=== PATIENT | male | born 1990 ===

== ENCOUNTER 2018-07-17 22:20 | Inpatient (IN) | payer MEDICAID ==
[2018-07-17] MEDS ORDERED: Dexamethasone 4 mg/1 ml IVP STA (22:54)
[2018-07-17] MEDS ORDERED: Multivitamin (MVI) 10 ML, Thiamine 100 MG, Folic Acid 1 MG in Sodium Chloride 0.9% 1,00... IV ONE ×2 (22:55→23:15)
[2018-07-17 23:03] LABS: BASO # 0.1 K/uL (0.0-0.2); BASO % 0.6 % (0.0-2.0); HEMOGLOBIN 14.5 g/dL (12.0-18.0); LYMPH # 0.8 K/uL (1.0-4.3); LYMPH % 9.4 % (20.0-40.0); MEAN CELL VOLUME 94.2 fL (80.0-94.0); MEAN CORPUSCULAR HEMOGLOBIN 32.9 pg (27.0-31.0); MEAN CORPUSCULAR HGB CONC 34.9 g/dL (33.0-37.0); MONO # 0.8 K/uL (0.0-0.8); MONO % 9.2 % (0.0-10.0); NEUT # 7.1 K/uL (1.8-7.0); NEUT % 80.8 % (50.0-75.0); PLATELET COUNT 177 K/uL (130-400); RBC 4.39 Mil/uL (4.40-5.90); WHITE BLOOD COUNT 8.9 K/uL (4.8-10.8)
[2018-07-17 23:21] LABS: ALB/GLOB RATIO 1.4 (1.0-2.1); ALBUMIN 4.3 g/dL (3.5-5.0); ALT/SGPT 490 U/L (21-72); BLOOD UREA NITROGEN 17 mg/dL (9-20); CALCIUM 8.7 mg/dl (8.6-10.4); GFR NON-AFRICAN AMERICAN > 60
[2018-07-17 23:36] LABS: BANDS 1 % (0-2); LYMPHOCYTE 4 % (20-40); MONOCYTE 10 % (0-10); NEUTROPHIL 77 % (50-75); PLATELET ESTIMATE NORMAL (NORMAL); REACTIVE LYMPHOCYTES 8 % (0-0); TOTAL CELLS COUNTED 100
[2018-07-17 23:40] LABS: AST/SGOT 1653 U/L (17-59)
[2018-07-18] MEDS ORDERED: Iodixanol 320 MG/ML 100 ML BOTTLE IV ONE (00:28)
--- NOTE | 2018-07-18 00:49 | C.PDOC ---
History Of Present Illness 28 year old male presents to the ER with a complaint of increasing buttock pain and swelling, right greater than left, and swelling to posterior bilateral legs after he slipped and fell 3 days ago on his buttock. Patient states he was unable to walk today due to weakness in the bilateral legs. Patient is an alcoholic, drinks 6-7 beers a day. Denies chest pain, SOB, or headache. <Servando Velazco Last Filed: 07/18/18 01:15> History Per: Patient History/Exam Limitations: no limitations Onset/Duration Of Symptoms: Days Current Symptoms Are (Timing): Still Present Recent travel outside of the [place]: No <Servando Velazco - Last Filed: 07/18/18 01:15> <Grzegorz Wiggins - Last Filed: 07/18/18 05:44> Time Seen by Provider: 07/17/18 22:42 Chief Complaint (Nursing): Lower Extremity Problem/Injury Past Medical History Reviewed: Historical Data, Nursing Documentation, Vital Signs Vital Signs: Last Vital Signs Temp 99.1 F 07/17/18 22:31 Pulse 93 H 07/18/18 00:08 Resp 18 07/18/18 00:08 BP 138/84 07/18/18 00:08 Pulse Ox 98 07/18/18 00:08 Family History: States: Unknown Family Hx - Social History Hx Alcohol Use: Yes Hx Substance Use: No - Immunization History Hx Tetanus Toxoid Vaccination: No Hx Influenza Vaccination: No Hx Pneumococcal Vaccination: No <Servando Velazco Last Filed: 07/18/18 01:15> Vital Signs: Last Vital Signs Temp 99.1 F 07/17/18 22:31 Pulse 85 07/18/18 03:25 Resp 16 07/18/18 03:25 BP 126/91 H 07/18/18 03:25 Pulse Ox 95 07/18/18 03:25 <Grzegorz Wiggins - Last Filed: 07/18/18 05:44> Review Of Systems Constitutional: Negative for: Fever, Chills Cardiovascular: Negative for: Chest Pain, Palpitations Respiratory: Negative for: Cough, Shortness of Breath Musculoskeletal: Positive for: Other (Bilateral buttock pain and swelling, right greater than left. Posterior leg swelling) Neurological: Positive for: Weakness (Bilateral legs) <Servando Velazco Filed: 07/18/18 01:15> Physical Exam - Physical Exam Appears: Non-toxic Skin: Normal Color, Warm, Dry Head: Atraumatic, Normacephalic Eye(s): bilateral: Normal Inspection Nose: Normal Oral Mucosa: Moist Neck: Normal, No Midline Cervical Tenderness, No Paracervical Tenderness, Supple Chest: Symmetrical, No Tenderness Cardiovascular: Rhythm Regular Respiratory: Normal Breath Sounds, No Rales, No Rhonchi, No Wheezing Gastrointestinal/Abdominal: Soft, No Tenderness Back: Other (Tenderness and swelling to iliosacral area, right greater than left. ) Extremity: Other (Edema to posterior thighs, right greater than left) Neurological/Psych: Oriented x3, Normal Speech, Other (Diminished sensation to bilateral lower extremities with 1/5 strength) <Servando Velazco - Last Filed: 07/18/18 01:15> ED Course And Treatment - Laboratory Results Result Diagrams: 07/17/18 23:00 07/17/18 23:00 Lab Interpretation: Abnormal (trop 95695 H) ECG: Interpreted By Pr ECG Rhythm: Sinus Rhythm ECG Interpretation: Normal Rate From EC O2 Sat by Pulse Oximetry: 98 Pulse Ox Interpretation: Normal - Radiology CXR: Interpreted by Pr CXR Interpretation: Yes: No Acute Disease Reevaluation Time: 01:09 Reassessment Condition: Improved <Servando Velazco Last Filed: 07/18/18 01:15> - Laboratory Results Result Diagrams: 07/17/18 23:00 07/17/18 23:00 <Grzegorz Wiggins - Last Filed: 07/18/18 05:44> Medical Decision Making Medical Decision Making: fall 2 days ago to buttock w R>L buttock/sacral swelling/edema and b/l R>L lower leg weakness/parasthesias, consider sacral/lower spinal fx at or below L4 decadron IV empirically for nerve impingement CT lower extremities/abd/pelvis pending @ sign-over Alcoholism: ? recent delerium Usually 6-8 beers/day Ativan IV given with good HR control Banana bag CIWA protocol as inpt Elev D-Dimer/+ trop ? PE chest angio pending hold on anticoagulation in case of bleeding/hematoma May consider IVF PRN <Servando Velazco - Last Filed: 07/18/18 01:15> Disposition - Disposition Disposition Time: 01:00 <Servando Velazco E - Last Filed: 07/18/18 01:15> Discussed With DrJosh: Adebayo Sinclair Comment: accepted the pt on his service and took over the care at 4:45 AM Doctor Will See Patient In The: ED Counseled Patient/Family Regarding: Studies Performed, Diagnosis <Grzegorz Wiggins - Last Filed: 07/18/18 05:44> - Disposition Disposition: HOSPITALIZED Condition: GUARDED - Clinical Impression Clinical Impression: Leg weakness, bilateral, NSTEMI (non-ST elevated myocardial infarction), Alcohol withdrawal delirium, Rhabdomyolysis - Scribe Statement The provider has reviewed the documentation as recorded by the Scribe Brando Villar All medical record entries made by the Scribe were at my direction and personally dictated by me. I have reviewed the chart and agree that the record accurately reflects my personal performance of the history, physical exam, medical decision making, and the department course for this patient. I have also personally directed, reviewed, and agree with the discharge instructions and disposition. <Servando Velazco E - Last Filed: 07/18/18 01:15> Physician Patient Turnover Patient Signed Over To: Grzegorz Wiggins Handoff Comments: f/u CT series and adm to Hospitalists <Servando Velazco - Last Filed: 07/18/18 01:15>
[2018-07-18 04:01] LABS: SQUAMOUS EPITHIAL < 1 /hpf (0-5); URINE BILIRUBIN NEGATIVE (NEGATIVE); URINE BLOOD 2+ (NEGATIVE); URINE CLARITY Clear (Clear); URINE COLOR Yellow (YELLOW); URINE GLUCOSE (UA) 1+ mg/dL (Normal); URINE LEUKOCYTE ESTERASE NEG Leu/uL (Negative); URINE PROTEIN NEGATIVE (NEGATIVE)
[2018-07-18 04:13] LABS: BARBITURATES, UR NEGATIVE (NEGATIVE); BENZODIAZEPINES, UR NEGATIVE (NEGATIVE); OPIATES, UR NEGATIVE (NEGATIVE); PHENCYCLIDINE, UR NEGATIVE (NEGATIVE)
--- NOTE | 2018-07-18 05:16 | CP.PCM.HP ---
<Sarah Coreas - Last Filed: 07/18/18 05:12> History of Present Illness - History of Present Illness History of Present Illness: PGY-1 Medicine H&P for Dr. Sinclair CC: cannot use my legs, need help to walk Patient is a 28 yo male with no significant past medical history presents to emergency department for evaluation unable to walk without assistance. Patient states that on Friday he had 10 beers. After consuming the beers, patient states he collapsed on his leg and passed out. Patient does not recall if he hit his head but denies bladder or bowel incontinence. Patient states he chose to come in today instead of Friday because he thought the symptoms would resolve. Patient states he took Tylenol because he was having back pain as well but that resolved. The ability to walk unassisted did not so patient decided to come into the ED with his father today. Patient denies fevers, chills, chest pain, sob, n/v, constipation or diarrhea, and dysuria. PMH- Denies PSH- Denies FH- Denies Allergies- NKDA Meds- Denies Social- 5-10 beers daily but not everyday, denies tobacco and etoh use PMD- Denies Code- Full code Present on Admission - Present on Admission Any Indicators Present on Admission: No Review of Systems - Review of Systems Review of Systems: 12 point ROS obtained and noted as in HPI Past Patient History - Past Social History Smoking Status: Never Smoked - PSYCHIATRIC Hx Substance Use: No - SURGICAL HISTORY Hx Surgeries: No Meds Allergies/Adverse Reactions: Allergies Allergy/AdvReac Type Severity Reaction Status Date / Time No Known Allergies Allergy Unverified 07/17/18 22:37 Physical Exam - Constitutional Appears: Non-toxic, No Acute Distress Additional comments: Drowsy and Lethargic - Head Exam Head Exam: NORMAL INSPECTION, NORMOCEPHALIC - Eye Exam Eye Exam: EOMI, Normal appearance. absent: Nystagmus, Scleral icterus - ENT Exam ENT Exam: Mucous Membranes Moist ( ) - Neck Exam Neck exam: Negative for: Normal Inspection Additional comments: cut on back of neck - Respiratory Exam Respiratory Exam: Clear to Auscultation Bilateral, NORMAL BREATHING PATTERN. absent: Decreased Breath Sounds, Rales, Rhonchi, Wheezes - Cardiovascular Exam Cardiovascular Exam: Tachycardia, +S1, +S2. absent: Systolic Murmur - GI/Abdominal Exam GI & Abdominal Exam: Normal Bowel Sounds, Soft. absent: Distended, Firm, G uarding, Tenderness - Extremities Exam Extremities exam: Positive for: normal inspection. Negative for: calf tenderness, pedal edema - Back Exam Back exam: NORMAL INSPECTION. absent: tenderness, vertebral tenderness - Neurological Exam Neurological exam: Oriented x3 Additional comments: drowsy, multiple attempts to awaken patient - Expanded Neurological Exam Expanded Neuro motor strength exam: Left Upper Extremity: 5, Right Upper Extremity: 5, Left Lower Extremity: 3, Right Lower Extremity: 3 - Psychiatric Exam Psychiatric exam: Normal Affect, Normal Mood - Skin Skin Exam: Intact, Normal Color Results - Vital Signs Recent Vital Signs: Last Vital Signs Temp 99.1 F 07/17/18 22:31 Pulse 85 07/18/18 03:25 Resp 16 07/18/18 03:25 BP 126/91 H 07/18/18 03:25 Pulse Ox 95 07/18/18 03:25 - Labs Result Diagrams: 07/17/18 23:00 07/17/18 23:00 Labs: Laboratory Results - last 24 hr 07/17/18 07/17/18 07/17/18 23:00 23:00 23:00 WBC 8.9 RBC 4.39 L Hgb 14.5 Hct 41.4 MCV 94.2 H MCH 32.9 H MCHC 34.9 RDW 13.0 Plt Count 177 MPV 8.0 Neut % (Auto) 80.8 H Lymph % (Auto) 9.4 L [place] % (Auto) 9.2 Eos % (Auto) 0.0 Baso % (Auto) 0.6 Neut # (Auto) 7.1 H Lymph # (Auto) 0.8 L [place] # (Auto) 0.8 Eos # (Auto) 0.0 Baso # (Auto) 0.1 Neutrophils % (Manual) 77 H Band Neutrophils % 1 Lymphocytes % (Manual) 4 L Reactive Lymphs % 8 H Monocytes % (Manual) 10 Platelet Estimate Normal RBC Morphology Normal D-Dimer, Quantitative 4361 H Sodium 134 Potassium 4.0 Chloride 98 Carbon Dioxide 28 Anion Gap 12 BUN 17 Creatinine 0.6 L Est GFR ( Amer) > 60 Est GFR (Non-Af Amer) > 60 Random Glucose 162 H Calcium 8.7 Total Bilirubin 1.0 AST 1653 H ALT 490 H Alkaline Phosphatase 121 Troponin I 0.2030 H* Total Protein 7.3 Albumin 4.3 Globulin 3.0 Albumin/Globulin Ratio 1.4 Urine Color Urine Clarity Urine pH Ur Specific [place] Urine Protein Urine Glucose (UA) Urine Ketones Urine Blood Urine Nitrate Urine Bilirubin Urine Urobilinogen Ur Leukocyte Esterase Urine WBC (Auto) Urine RBC (Auto) Ur Squamous Epith Cells Urine Opiates Screen Urine Methadone Screen Ur Barbiturates Screen Ur Phencyclidine Scrn Ur Amphetamines Screen U Benzodiazepines Scrn U Oth Cocaine Metabols U Cannabinoids Screen Alcohol, Quantitative 07/18/18 07/18/18 07/18/18 01:05 03:55 03:55 WBC RBC Hgb Hct MCV MCH MCHC RDW Plt Count MPV Neut % (Auto) Lymph % (Auto) [place] % (Auto) Eos % (Auto) Baso % (Auto) Neut # (Auto) Lymph # (Auto) [place] # (Auto) Eos # (Auto) Baso # (Auto) Neutrophils % (Manual) Band Neutrophils % Lymphocytes % (Manual) Reactive Lymphs % Monocytes % (Manual) Platelet Estimate RBC Morphology D-Dimer, Quantitative Sodium Potassium Chloride Carbon Dioxide Anion Gap BUN Creatinine Est GFR ( Amer) Est GFR (Non-Af Amer) Random Glucose Calcium Total Bilirubin AST ALT Alkaline Phosphatase Troponin I Total Protein Albumin Globulin Albumin/Globulin Ratio Urine Color Yellow Urine Clarity Clear Urine pH 7.0 Ur Specific [place] 1.044 H Urine Protein Negative Urine Glucose (UA) 1+ H Urine Ketones Trace Urine Blood 2+ H Urine Nitrate Negative Urine Bilirubin Negative Urine Urobilinogen 2.0 Ur Leukocyte Esterase Neg Urine WBC (Auto) < 1 Urine RBC (Auto) 1 Ur Squamous Epith Cells < 1 Urine Opiates Screen Negative Urine Methadone Screen Negative Ur Barbiturates Screen Negative Ur Phencyclidine Scrn Negative Ur Amphetamines Screen Negative U Benzodiazepines Scrn Negative U Oth Cocaine Metabols Negative U Cannabinoids Screen Negative Alcohol, Quantitative < 10 Assessment & Plan - Assessment and Plan (Free Text) Assessment: Patient is a 28 yo male with no PMH admitted for unable to walk secondary to increased alcohol take and passing out 2 days ago. Plan: Rhabdomyolosis CT Lower extremity: Findings are normal, no evidence of acute bone pathology likely why patient cannot walk NS @ 100mls/hr U/A: 2 + blood UDS: EtOH<10; negative for all other substances Back Pain resolved after Tylenol use at home CT Abd/pelvis: moderate degenerative disc disease is noted at L4-L5. Findings demonstrated disc space narrowing, osteophyte formation and degenerative endplate sclerosis. Secondary mild narrowing of the spinal canal. Subseuqent mild bilateral foraminal narrowing. Alcohol Use Disorder Head CT pending Last drink 3 days ago CIWA protocol Ativan 1mg q6 prn- for withdrawal symptoms NS @ 100mls/hr w/ MVs AST:ALT > 2 on admission Elevated Troponin likely secondary to rhabdo Patient complains of no chest pain VSS stable Troponin/EKG repeats pending Elevated D-Dimer CT chest w/ IV contrast: no demonstrated P.E or arterial dissection PPx DVT ppx: Heparin 5000 units sc GI ppx: not indicated at this time <Adebayo Sinclair - Last Filed: 07/18/18 06:21> Results - Vital Signs Recent Vital Signs: Last Vital Signs Temp 99.1 F 07/17/18 22:31 Pulse 85 07/18/18 03:25 Resp 16 07/18/18 03:25 BP 126/91 H 07/18/18 03:25 Pulse Ox 95 07/18/18 03:25 - Labs Result Diagrams: 07/17/18 23:00 07/17/18 23:00 Labs: Laboratory Results - last 24 hr 07/17/18 07/17/18 07/17/18 23:00 23:00 23:00 WBC 8.9 RBC 4.39 L Hgb 14.5 Hct 41.4 MCV 94.2 H MCH 32.9 H MCHC 34.9 RDW 13.0 Plt Count 177 MPV 8.0 Neut % (Auto) 80.8 H Lymph % (Auto) 9.4 L [place] % (Auto) 9.2 Eos % (Auto) 0.0 Baso % (Auto) 0.6 Neut # (Auto) 7.1 H Lymph # (Auto) 0.8 L [place] # (Auto) 0.8 Eos # (Auto) 0.0 Baso # (Auto) 0.1 Neutrophils % (Manual) 77 H Band Neutrophils % 1 Lymphocytes % (Manual) 4 L Reactive Lymphs % 8 H Monocytes % (Manual) 10 Platelet Estimate Normal RBC Morphology Normal APTT D-Dimer, Quantitative 4361 H Sodium 134 Potassium 4.0 Chloride 98 Carbon Dioxide 28 Anion Gap 12 BUN 17 Creatinine 0.6 L Est GFR ( Amer) > 60 Est GFR (Non-Af Amer) > 60 Random Glucose 162 H Calcium 8.7 Total Bilirubin 1.0 AST 1653 H ALT 490 H Alkaline Phosphatase 121 Total Creatine Kinase Troponin I 0.2030 H* Total Protein 7.3 Albumin 4.3 Globulin 3.0 Albumin/Globulin Ratio 1.4 Urine Color Urine Clarity Urine pH Ur Specific [place] Urine Protein Urine Glucose (UA) Urine Ketones Urine Blood Urine Nitrate Urine Bilirubin Urine Urobilinogen Ur Leukocyte Esterase Urine WBC (Auto) Urine RBC (Auto) Ur Squamous Epith Cells Urine Opiates Screen Urine Methadone Screen Ur Barbiturates Screen Ur Phencyclidine Scrn Ur Amphetamines Screen U Benzodiazepines Scrn U Oth Cocaine Metabols U Cannabinoids Screen Alcohol, Quantitative 07/18/18 07/18/18 07/18/18 01:05 03:55 03:55 WBC RBC Hgb Hct MCV MCH MCHC RDW Plt Count MPV Neut % (Auto) Lymph % (Auto) [place] % (Auto) Eos % (Auto) Baso % (Auto) Neut # (Auto) Lymph # (Auto) [place] # (Auto) Eos # (Auto) Baso # (Auto) Neutrophils % (Manual) Band Neutrophils % Lymphocytes % (Manual) Reactive Lymphs % Monocytes % (Manual) Platelet Estimate RBC Morphology APTT D-Dimer, Quantitative Sodium Potassium Chloride Carbon Dioxide Anion Gap BUN Creatinine Est GFR ( Amer) Est GFR (Non-Af Amer) Random Glucose Calcium Total Bilirubin AST ALT Alkaline Phosphatase Total Creatine Kinase Troponin I Total Protein Albumin Globulin Albumin/Globulin Ratio Urine Color Yellow Urine Clarity Clear Urine pH 7.0 Ur Specific [place] 1.044 H Urine Protein Negative Urine Glucose (UA) 1+ H Urine Ketones Trace Urine Blood 2+ H Urine Nitrate Negative Urine Bilirubin Negative Urine Urobilinogen 2.0 Ur Leukocyte Esterase Neg Urine WBC (Auto) < 1 Urine RBC (Auto) 1 Ur Squamous Epith Cells < 1 Urine Opiates Screen Negative Urine Methadone Screen Negative Ur Barbiturates Screen Negative Ur Phencyclidine Scrn Negative Ur Amphetamines Screen Negative U Benzodiazepines Scrn Negative U Oth Cocaine Metabols Negative U Cannabinoids Screen Negative Alcohol, Quantitative < 10 07/18/18 07/18/18 04:22 06:01 WBC RBC Hgb Hct MCV MCH MCHC RDW Plt Count MPV Neut % (Auto) Lymph % (Auto) [place] % (Auto) Eos % (Auto) Baso % (Auto) Neut # (Auto) Lymph # (Auto) [place] # (Auto) Eos # (Auto) Baso # (Auto) Neutrophils % (Manual) Band Neutrophils % Lymphocytes % (Manual) Reactive Lymphs % Monocytes % (Manual) Platelet Estimate RBC Morphology APTT 24 D-Dimer, Quantitative Sodium Potassium Chloride Carbon Dioxide Anion Gap BUN Creatinine Est GFR ( Amer) Est GFR (Non-Af Amer) Random Glucose Calcium Total Bilirubin AST ALT Alkaline Phosphatase Total Creatine Kinase [id number] H Troponin I Total Protein Albumin Globulin Albumin/Globulin Ratio Urine Color Urine Clarity Urine pH Ur Specific [place] Urine Protein Urine Glucose (UA) Urine Ketones Urine Blood Urine Nitrate Urine Bilirubin Urine Urobilinogen Ur Leukocyte Esterase Urine WBC (Auto) Urine RBC (Auto) Ur Squamous Epith Cells Urine Opiates Screen Urine Methadone Screen Ur Barbiturates Screen Ur Phencyclidine Scrn Ur Amphetamines Screen U Benzodiazepines Scrn U Oth Cocaine Metabols U Cannabinoids Screen Alcohol, Quantitative Assessment & Plan - Date & Time Date: 07/18/18 (I have seen and examined the patient. I agree with the findings and plan of care as documented by Dr. Coreas. Patient with rhabdomyolosis. Patient does not recall traumatic event resulting in acute bodily injury. Monitor renal function. IVF. Increase fluids as necessary. [facility] protocol for alcohol abuse. Monitor LFTs. Follow up official CT chest results due to elevated d-dimer. Denies SOB. Monitor for acute changes.) Time: 06:18 Attending/Attestation - Attestation I have personally seen and examined this patient.: Yes I have fully participated in the care of the patient.: Yes I have reviewed all pertinent clinical information: Yes
[2018-07-18] MEDS ORDERED: Sodium Chloride 0.9% 1,000 ML IV ONE ×2 (05:45)
[2018-07-18] MEDS ORDERED: FOLIC ACID IV ONE (05:47)
[2018-07-18] MEDS ORDERED: [UNRECOGNIZED DRUG - OTHER] IV ONE (05:47)
[2018-07-18] MEDS ORDERED: MULTIVITAMIN IV ONE (05:47)
[2018-07-18] MEDS ORDERED: THIAMINE IV ONE (05:47)
[2018-07-18] MEDS ORDERED: Sodium Chloride 0.9% 1,000 ML IV SCH (07:00)
--- NOTE | 2018-07-18 10:56 | CT ---
Date of service: 07/18/2018 PROCEDURE: CT bilateral lower extremity HISTORY: neuro weak below knees, scan hip to below knees COMPARISON: Not available TECHNIQUE: 2.5 mm contiguous axial sections were acquired through the inferior pelvis and bilateral femur, to the level of the knee. Sagittal and coronal images were reformatted from the axial scan. No intravenous contrast material was administered for this examination. Intravenous contrast material have been previously administered for a CT examination of the chest, abdomen and pelvis. Total exam DLP: 202.18 mGy-cm This CT exam was performed using 1 or more of the following dose reduction techniques: Automated exposure control, adjustment of the mA and/or kV according to patient size, and/or use of iterative reconstruction technique. FINDINGS: There is no osseous fracture. There is no lytic or blastic osseous lesion. There is ill-defined low-attenuation seen within the semi memberanosis/semitendinosis muscles bilaterally, right greater than left. This most likely reflect muscle strain. There is no high attenuation material to suggest acute hemorrhage. There is stranding of the subcutaneous soft tissues as well as the fat between the muscle bundles of the posterior thigh. There is no ricki soft tissue hematoma identified extrinsic to the muscles. There is no evidence of vascular injury. No contrast extravasation is appreciated. IMPRESSION: Low-attenuation within the hamstring muscles bilaterally most likely reflecting muscle strain without evidence of ricki acute hemorrhage. No evidence of fracture. The preliminary findings for this examination were [facility] at 1:58 a.m. on 07/18/2018. There is discordance of this report with the preliminary findings. The presence of likely muscle strain was not noted in the preliminary report of this examination.
[2018-07-18 11:46] LABS: BASO % 0.4 % (0.0-2.0); HEMOGLOBIN 13.3 g/dL (12.0-18.0); LYMPH # 0.4 K/uL (1.0-4.3); LYMPH % 6.7 % (20.0-40.0); MEAN CORPUSCULAR HEMOGLOBIN 33.1 pg (27.0-31.0); MEAN CORPUSCULAR HGB CONC 34.9 g/dL (33.0-37.0); MEAN PLATELET VOLUME 8.1 fL (7.2-11.7); MONO # 0.3 K/uL (0.0-0.8); MONO % 4.9 % (0.0-10.0); NEUT # 5.8 K/uL (1.8-7.0); PLATELET COUNT 169 K/uL (130-400); RBC 4.02 Mil/uL (4.40-5.90); RED CELL DISTRIBUTION WIDTH 12.8 % (11.5-14.5); WHITE BLOOD COUNT 6.6 K/uL (4.8-10.8)
[2018-07-18 12:08] LABS: ALB/GLOB RATIO 1.2 (1.0-2.1); ALBUMIN 3.9 g/dL (3.5-5.0); ALT/SGPT 428 U/L (21-72); BLOOD UREA NITROGEN 12 mg/dL (9-20); CALCIUM 8.4 mg/dl (8.6-10.4); GFR NON-AFRICAN AMERICAN > 60
[2018-07-18 12:11] LABS: TROPONIN I 0.11 ng/mL (0.00-0.120)
[2018-07-18 12:17] LABS: AST/SGOT 1109 U/L (17-59)
[2018-07-18] MEDS: Sodium Chloride 0.9% 1,000 ML IV SCH ×2 (12:22→16:55)
[2018-07-18 12:42] LABS: CK-MB 57.3 ng/mL (0.0-3.38)
[2018-07-18 13:03] LABS: BANDS 1 % (0-2); LYMPHOCYTE 7 % (20-40); MONOCYTE 4 % (0-10); NEUTROPHIL 88 % (50-75); PLATELET ESTIMATE NORMAL (NORMAL); TOTAL CELLS COUNTED 100
[2018-07-18] MEDS ORDERED: Gadodiamide 287 MG/ML VIAL (15ML) IV ONE (13:20)
--- NOTE | 2018-07-18 14:10 | MRI ---
Date of service: 07/18/2018 PROCEDURE: MR LUMBAR SPINE WITH AND WITHOUT CONTRAST HISTORY: Bilateral foot drop with decreased sensory and weakness. COMPARISON: None available. TECHNIQUE: Multiecho multiplanar sequences were performed through the lumbar spine with and without the use of intravenous contrast. FINDINGS: The current study reveals no acute compression fractures no retropulsed fragments. Vertebral bodies exhibit normal stature however note made of a Schmorl's node seen along the posterior inferior L4 endplate which is associated with some minor edema and corresponding minimal enhancement.. No evidence to suggest discitis/osteomyelitis. Small chronic appearing Schmorl's node also seen along the inferior and superior L3 as well as superior L2 endplates. Conus terminates at approximately the T12-L1 level. No evidence of abnormal enhancement within or along the surfaces of the distal conus or descending nerve roots of the cauda equina. T12-L1: No disc herniation, spinal canal stenosis or neural foraminal narrowing. L1-2: No disc herniation, spinal canal stenosis or neural foraminal narrowing. L2-3: No disc herniation, spinal canal stenosis or neural foraminal narrowing. L3-4: Adequate disc height and hydration. No disc herniation or significant disc bulge. The facets also slightly overgrown. Central canal and exit foramina adequate at this level. L4-5: There is mild disc desiccation however disc space height is relatively maintained. Small broad-based bulge ridge complex results in compressive effects on the ventral surface of the thecal sac and mild posterior displacement of the nearly exiting intrathecal L5 and possibly L4 nerve roots. The overall central bony canal is mildly narrowed at this level. Disc ridge complex extends into the proximal inferior margins of both exit foramina however the exit foramina appear adequate.. Facet joints are slightly overgrown at this level. L5-S1: There is adequate disc height and hydration. No disc herniation or significant disc bulge. Facet joints are mildly hypertrophic. Central canal and exit foramina adequate. OTHER FINDINGS: Markedly distended urinary bladder; rule out urinary retention or bladder outlet obstruction. The IMPRESSION: Mild degenerative spondylosis most notably affecting the L4-L5 level where there is small to medium-sized Schmorl's node at associated with enhancing type 1 discogenic sclerosis.. Broad-based disc ridge complex at this level does mildly compress the ventral surface of the thecal sac and posteriorly displaces the intrathecal L5 and possibly the intrathecal L4 nerve roots. There is mild central canal narrowing at this level. Minor degenerative spondylosis seen at the remaining levels. . No evidence of discitis osteomyelitis. No evidence of abnormal enhancement within the intrathecal extramedullary or intramedullary compartments. Markedly distended urinary bladder; rule out urinary retention or bladder outlet obstruction.
--- NOTE | 2018-07-18 14:37 | CP.PCM.PN ---
Subjective - Date & Time of Evaluation Date of Evaluation: 07/18/18 Time of Evaluation: 11:10 - Subjective Subjective: Medical Attending Note: Patient seen and examined at bedside. Patient is awake, alert, oriented X3. He is accompanied by his brother and cousin. Patient denies chest pain, denies palpitations, denies abdominal pain, denies stool/urinary continence, reports he can control when he goes to the bathroom and urinates. Per the cousin, patient seen walking normally at Friday 8pm, he normally drinks, then sits in a chair, last saw him in the chair at 2am on , when he saw him 5pm , he had fallen out of the chair, face f irst and could not walk and he had to pick him up. Patient at bedside, unable to push down with his feet, or place weight on either foot and sensation decreased over medial to lateral aspect of his feet bilateral. Patient denies pain. Objective - Vital Signs/Intake and Output Vital Signs (last 24 hours): Temp Pulse Resp BP Pulse Ox 98.1 F 84 16 119/82 96 07/18/18 12:28 07/18/18 14:22 07/18/18 14:22 07/18/18 14:22 07/18/18 14:22 - Medications Medications: Current Medications Sodium Chloride (Sodium Chloride 0.9%) 1,000 mls @ 200 mls/hr IV .Q5H [facility] Last Admin: 07/18/18 12:22 Dose: 200 mls/hr - Labs Labs: 07/18/18 11:42 07/18/18 11:42 APTT 24 SECONDS (21-34) 07/18/18 06:01 - Constitutional Appears: Non-toxic, No Acute Distress - Head Exam Head Exam: NORMAL INSPECTION - Eye Exam Eye Exam: EOMI, PERRL - ENT Exam ENT Exam: Mucous Membranes Moist - Respiratory Exam Respiratory Exam: Clear to Ausculation Bilateral, NORMAL BREATHING PATTERN. absent: Rales, Rhonchi, Wheezes - Cardiovascular Exam Cardiovascular Exam: REGULAR RHYTHM, +S1, +S2 - GI/Abdominal Exam GI & Abdominal Exam: Distended, Soft, Normal Bowel Sounds. absent: Firm, Guarding, Rigid, Tenderness, Rebound - Extremities Exam Additional comments: dependent edema over the butt and behind the thighs no bruising noted no tenderness elicted over the hips anal wink intact - Back Exam Back Exam: NORMAL INSPECTION, rash noted (right upper back). absent: CVA tenderness (L), CVA tenderness (R), paraspinal tenderness, vertebral tenderness - Neurological Exam Neurological Exam: Abnormal Gait, Alert, Awake, Motor Sensory Deficit (l4-S1), Oriented x3 Neuro motor strength exam: Left Upper Extremity: 5, Right Upper Extremity: 5 Additional comments: sensation intact medial thigh, lateral thigh over the dorsum of feet sensation less L4-S1, unable to lift any toes nor big toe Anal wink intact hyperreactive over the patella (left) DTR, normal DTR over the right patella pulses appreciated over the DP, PD Strength upper strength 5/5 When we pick him up, patient is unable to bear weight on his feet. Patient is able to lift at the knee to his chest bilateral. - Skin Skin Exam: Dry, Intact, Normal Color, Warm Additional comments: dependent edema over the butt and thigh Patient has mild erythema over the right side of back Assessment and Plan (1) Status post fall Assessment & Plan: Head CT pending official read CT lower extremity with contrast (07/18/18): low attenution within hamstring muscles bilaterally mostl likely reflecting muscle strain without evidence of ricki acute hemorrhage. no evidence of fracture. Case discussed with neurosurgery (Dr. rapp) given lower extremity weakness and sensation diminished over the feet at time of my assessment. Patient underwent MRI of lumbar spine stat. Lumbar spine MRI: mild degenerative spondylosis most notably affecting the L4-L5 level where there is small to medium sized Schmori node at associated with enhancing type 1 disocgenic sclerosis. Broad based disc ridge complex at this level does mildy vincenzo the ventral surface of the thecal sac and posteriorly displaces the intrathecal L5 possible the intrathecal L4 nerve roots. mild central canal narrowing at this level. No evidence of discitis osteomyelitis. No evidence of abnormal enhanc ement within the intrathecal extramedullary or intramedullary, Markedly distended urinary bladder. rule out urinary retention Case discussed with neurosurgery, given MRI findings, the findings are chronic. likely related to muscle strain to account for patient's decrease sensation over the feet and weakness at the feet. Will consult vascular surgery r/o compartment syndrome. Patient does have pulses on bilateral DP and PD on my exam. CT scan notes no ricki hemorrhage. [id number] Status: Acute (2) Leg weakness, bilateral Assessment & Plan: Case discussed with neurosurgery (Dr. rapp) given lower extremity weakness and sensation diminished over the feet at time of my assessment. Patient underwent MRI of lumbar spine stat. Lumbar spine MRI: mild degenerative spondylosis most notably affecting the L4-L5 level where there is small to medium sized Schmori node at associated with enhancing type 1 disocgenic scleros is. Broad based disc ridge complex at this level does mildy vincenzo the ventral surface of the thecal sca and posteriorly displaces the intrathecal L5 possible the intrathecal L4 nerve roots. mild central canal narrowing at this level. No evidence of discitis osteomyelitis. No evidence of abnormal enhancement within the intrathecal extramedullary or intramedullary, Markedly distended urinary bladder. rule out urinary retention Case discussed with neurosurgery, given MRI findings, the findings are chronic. likely related to muscle strain to account for patient's decrease sensation over the feet and weakness at the fee.t Status: Acute (3) NSTEMI (non-ST elevated myocardial infarction) Assessment & Plan: Troponin negative Status: Acute (4) Rhabdomyolysis Assessment & Plan: Continue IV fluids Trending down: [id number] Status: Acute (5) Elevated d-dimer Assessment & Plan: CT chest w/ IV contrast: no demonstrated P.E or arterial dissection ZHOU has normalized s/p fall 2 days ago Status: Acute (6) Transaminitis Assessment & Plan: acute phase reactant patient is also alcohol user will check hepatitis panel check abdominal US in light of alcohol use Status: Acute (7) Prophylactic measure Assessment & Plan: hold heparin dvt PT/OT eval Fall risk precautions Status: Acute
--- NOTE | 2018-07-18 14:59 | CT ---
Date of service: 07/18/2018 PROCEDURE: CT HEAD WITHOUT CONTRAST. HISTORY: fall COMPARISON: None available. TECHNIQUE: Axial computed tomography images were obtained through the head/brain without intravenous contrast. Radiation dose: Total exam DLP = 924.26 mGy-cm. This CT exam was performed using one or more of the following dose reduction techniques: Automated exposure control, adjustment of the mA and/or kV according to patient size, and/or use of iterative reconstruction technique. FINDINGS: Examination is limited by patient motion artifact particularly obscuring the posterior fossa. HEMORRHAGE: No intracranial hemorrhage. BRAIN: No mass effect or edema. No atrophy or chronic microvascular ischemic changes. VENTRICLES: Unremarkable. No hydrocephalus. CALVARIUM: Unremarkable. PARANASAL SINUSES: Unremarkable as visualized. No significant inflammatory changes. MASTOID AIR CELLS: Unremarkable as visualized. No inflammatory changes. OTHER FINDINGS: None. IMPRESSION: Normal CT of the Head. No acute intracranial hemorrhage. The preliminary findings for this examination were reported by [facility] at 5:59 a.m. on 07/18/2018. There is concurrence of this report with the preliminary findings.
--- NOTE | 2018-07-18 16:10 | CP.PCM.CON ---
History of Present Illness - History of Present Illness History of Present Illness: Surgery consult for Dr. Rivera Consulted for: swelling of posterior thighs BL, R/O compartment syndrome Pt is a 28M with PMH of ETOH abuse who was drinking alcohol heavily on , was witnessed sleeping in a chair by family, then was found face down on the ground several hours later. Patient does not remember falling or if he hit his head. Patient was unable to walk d/t foot drop. Symptoms did not improve, so he came to ER. Patient reports pain in the bilateral posterior thighs but denies any numbness or tingling of his feet, chest pain, abdominal pain, nausea, vomiting, fevers chills, or any other complaints. CT of the legs was concerning for muscle strain of the BL hamstrings. Surgery consult was requested for possible compartment syndrome PMH: ETOH use PSH: denies ALL; NKDA Social: 5beers/day, denies smoking, or any other drugs Review of Systems - Review of Systems All systems: reviewed and no additional remarkable complaints except (as per HPI) Past Patient History - Past Medical History & Family History Past Medical History?: Yes Past Family History: Reviewed and not pertinent - Past Social History Smoking Status: Never Smoked Alcohol: > 2 Drinks/Day Drugs: Denies - PSYCHIATRIC Hx Substance Use: No - SURGICAL HISTORY Hx Surgeries: No Meds Allergies/Adverse Reactions: Allergies Allergy/AdvReac Type Severity Reaction Status Date / Time No Known Allergies Allergy Unverified 07/17/18 22:37 - Medications Medications: Current Medications Sodium Chloride (Sodium Chloride 0.9%) 1,000 mls @ 200 mls/hr IV .Q5H [facility] Last Admin: 07/18/18 12:22 Dose: 200 mls/hr Lorazepam (Ativan) 1 mg IVP Q6H PRN PRN Reason: Symptoms of alcohol withdrawl Physical Exam - Constitutional Appears: Well, Non-toxic, No Acute Distress - Head Exam Head Exam: ATRAUMATIC, NORMOCEPHALIC - Eye Exam Eye Exam: Normal appearance. absent: Conjunctival injection, Scleral icterus - ENT Exam ENT Exam: Mucous Membranes Moist, Normal Oropharynx - Respiratory Exam Respiratory Exam: NORMAL BREATHING PATTERN. absent: Accessory Muscle Use, Respiratory Distress - Cardiovascular Exam Cardiovascular Exam: RRR - GI/Abdominal Exam GI & Abdominal Exam: Soft. absent: Distended, Tenderness - Extremities Exam Extremities exam: Positive for: pedal pulses present (BL palpable DP and PT pulses). Negative for: calf tenderness, pedal edema Additional comments: posterior BL 1+ thigh edema and mild induration, mild erythema, all compartments soft, mild pain to palpation, no pain with passive ROM - Neurological Exam Neurological exam: Alert, Oriented x3 - Psychiatric Exam Psychiatric exam: Flat Affect, Normal Mood - Skin Skin Exam: Dry, Intact, Warm Results - Vital Signs Recent Vital Signs: Last Vital Signs Temp 98.6 F 07/18/18 15:25 Pulse 87 07/18/18 15:25 Resp 16 07/18/18 15:25 BP 114/74 07/18/18 15:25 Pulse Ox 94 L 07/18/18 15:25 - Labs Result Diagrams: 07/18/18 11:42 07/18/18 11:42 Labs: Laboratory Results - last 24 hr 07/17/18 07/17/18 07/17/18 23:00 23:00 23:00 WBC 8.9 RBC 4.39 L Hgb 14.5 Hct 41.4 MCV 94.2 H MCH 32.9 H MCHC 34.9 RDW 13.0 Plt Count 177 MPV 8.0 Neut % (Auto) 80.8 H Lymph % (Auto) 9.4 L Mccormick % (Auto) 9.2 Eos % (Auto) 0.0 Baso % (Auto) 0.6 Neut # (Auto) 7.1 H Lymph # (Auto) 0.8 L Mccormick # (Auto) 0.8 Eos # (Auto) 0.0 Baso # (Auto) 0.1 Neutrophils % (Manual) 77 H Band Neutrophils % 1 Lymphocytes % (Manual) 4 L Reactive Lymphs % 8 H Monocytes % (Manual) 10 Platelet Estimate Normal RBC Morphology Normal APTT D-Dimer, Quantitative 4361 H Sodium 134 Potassium 4.0 Chloride 98 Carbon Dioxide 28 Anion Gap 12 BUN 17 Creatinine 0.6 L Est GFR ( Amer) > 60 Est GFR (Non-Af Amer) > 60 Random Glucose 162 H Calcium 8.7 Phosphorus Magnesium Total Bilirubin 1.0 AST 1653 H ALT 490 H Alkaline Phosphatase 121 Total Creatine Kinase CK-MB (Mass) Troponin I 0.2030 H* Total Protein 7.3 Albumin 4.3 Globulin 3.0 Albumin/Globulin Ratio 1.4 Urine Color Urine Clarity Urine pH Ur Specific [place] Urine Protein Urine Glucose (UA) Urine Ketones Urine Blood Urine Nitrate Urine Bilirubin Urine Urobilinogen Ur Leukocyte Esterase Urine WBC (Auto) Urine RBC (Auto) Ur Squamous Epith Cells Urine Opiates Screen Urine Methadone Screen Ur Barbiturates Screen Ur Phencyclidine Scrn Ur Amphetamines Screen U Benzodiazepines Scrn U Oth Cocaine Metabols U Cannabinoids Screen Alcohol, Quantitative 07/18/18 07/18/18 07/18/18 01:05 03:55 03:55 WBC RBC Hgb Hct MCV MCH MCHC RDW Plt Count MPV Neut % (Auto) Lymph % (Auto) Mccormick % (Auto) Eos % (Auto) Baso % (Auto) Neut # (Auto) Lymph # (Auto) Mccormick # (Auto) Eos # (Auto) Baso # (Auto) Neutrophils % (Manual) Band Neutrophils % Lymphocytes % (Manual) Reactive Lymphs % Monocytes % (Manual) Platelet Estimate RBC Morphology APTT D-Dimer, Quantitative Sodium Potassium Chloride Carbon Dioxide Anion Gap BUN Creatinine Est GFR ( Amer) Est GFR (Non-Af Amer) Random Glucose Calcium Phosphorus Magnesium Total Bilirubin AST ALT Alkaline Phosphatase Total Creatine Kinase CK-MB (Mass) Troponin I Total Protein Albumin Globulin Albumin/Globulin Ratio Urine Color Yellow Urine Clarity Clear Urine pH 7.0 Ur Specific [place] 1.044 H Urine Protein Negative Urine Glucose (UA) 1+ H Urine Ketones Trace Urine Blood 2+ H Urine Nitrate Negative Urine Bilirubin Negative Urine Urobilinogen 2.0 Ur Leukocyte Esterase Neg Urine WBC (Auto) < 1 Urine RBC (Auto) 1 Ur Squamous Epith Cells < 1 Urine Opiates Screen Negative Urine Methadone Screen Negative Ur Barbiturates Screen Negative Ur Phencyclidine Scrn Negative Ur Amphetamines Screen Negative U Benzodiazepines Scrn Negative U Oth Cocaine Metabols Negative U Cannabinoids Screen Negative Alcohol, Quantitative < 10 07/18/18 07/18/18 07/18/18 04:22 06:01 06:01 WBC RBC Hgb Hct MCV MCH MCHC RDW Plt Count MPV Neut % (Auto) Lymph % (Auto) Mccormick % (Auto) Eos % (Auto) Baso % (Auto) Neut # (Auto) Lymph # (Auto) Mccormick # (Auto) Eos # (Auto) Baso # (Auto) Neutrophils % (Manual) Band Neutrophils % Lymphocytes % (Manual) Reactive Lymphs % Monocytes % (Manual) Platelet Estimate RBC Morphology APTT 24 D-Dimer, Quantitative Sodium Potassium Chloride Carbon Dioxide Anion Gap BUN Creatinine Est GFR ( Amer) Est GFR (Non-Af Amer) Random Glucose Calcium Phosphorus Magnesium Total Bilirubin AST ALT Alkaline Phosphatase Total Creatine Kinase 580716 H CK-MB (Mass) Troponin I 0.1220 H* Total Protein Albumin Globulin Albumin/Globulin Ratio Urine Color Urine Clarity Urine pH Ur Specific [place] Urine Protein Urine Glucose (UA) Urine Ketones Urine Blood Urine Nitrate Urine Bilirubin Urine Urobilinogen Ur Leukocyte Esterase Urine WBC (Auto) Urine RBC (Auto) Ur Squamous Epith Cells Urine Opiates Screen Urine Methadone Screen Ur Barbiturates Screen Ur Phencyclidine Scrn Ur Amphetamines Screen U Benzodiazepines Scrn U Oth Cocaine Metabols U Cannabinoids Screen Alcohol, Quantitative 07/18/18 07/18/18 07/18/18 06:02 11:42 11:42 WBC 6.6 RBC 4.02 L Hgb 13.3 Hct 38.2 MCV 95.0 H MCH 33.1 H MCHC 34.9 RDW 12.8 Plt Count 169 MPV 8.1 Neut % (Auto) 88.0 H Lymph % (Auto) 6.7 L Mccormick % (Auto) 4.9 Eos % (Auto) 0.0 Baso % (Auto) 0.4 Neut # (Auto) 5.8 Lymph # (Auto) 0.4 L Mccormick # (Auto) 0.3 Eos # (Auto) 0.0 Baso # (Auto) 0.0 Neutrophils % (Manual) 88 H Band Neutrophils % 1 Lymphocytes % (Manual) 7 L Reactive Lymphs % Monocytes % (Manual) 4 Platelet Estimate Normal RBC Morphology Normal APTT D-Dimer, Quantitative Sodium Potassium Chloride Carbon Dioxide Anion Gap BUN Creatinine Est GFR ( Amer) Est GFR (Non-Af Amer) Random Glucose Calcium Phosphorus 3.1 Magnesium 2.4 H Total Bilirubin AST ALT Alkaline Phosphatase Total Creatine Kinase 15157 H CK-MB (Mass) 57.3 H Troponin I 0.1100 Total Protein Albumin Globulin Albumin/Globulin Ratio Urine Color Urine Clarity Urine pH Ur Specific [place] Urine Protein Urine Glucose (UA) Urine Ketones Urine Blood Urine Nitrate Urine Bilirubin Urine Urobilinogen Ur Leukocyte Esterase Urine WBC (Auto) Urine RBC (Auto) Ur Squamous Epith Cells Urine Opiates Screen Urine Methadone Screen Ur Barbiturates Screen Ur Phencyclidine Scrn Ur Amphetamines Screen U Benzodiazepines Scrn U Oth Cocaine Metabols U Cannabinoids Screen Alcohol, Quantitative 07/18/18 11:42 WBC RBC Hgb Hct MCV MCH MCHC RDW Plt Count MPV Neut % (Auto) Lymph % (Auto) Mccormick % (Auto) Eos % (Auto) Baso % (Auto) Neut # (Auto) Lymph # (Auto) Mccormick # (Auto) Eos # (Auto) Baso # (Auto) Neutrophils % (Manual) Band Neutrophils % Lymphocytes % (Manual) Reactive Lymphs % Monocytes % (Manual) Platelet Estimate RBC Morphology APTT D-Dimer, Quantitative Sodium 137 Potassium 4.0 Chloride 100 Carbon Dioxide 28 Anion Gap 12 BUN 12 Creatinine 0.6 L Est GFR ( Amer) > 60 Est GFR (Non-Af Amer) > 60 Random Glucose 183 H Calcium 8.4 L Phosphorus 2.9 Magnesium 2.2 Total Bilirubin 1.0 AST 1109 H ALT 428 H Alkaline Phosphatase 91 Total Creatine Kinase CK-MB (Mass) Troponin I Total Protein 7.0 Albumin 3.9 Globulin 3.1 Albumin/Globulin Ratio 1.2 Urine Color Urine Clarity Urine pH Ur Specific [place] Urine Protein Urine Glucose (UA) Urine Ketones Urine Blood Urine Nitrate Urine Bilirubin Urine Urobilinogen Ur Leukocyte Esterase Urine WBC (Auto) Urine RBC (Auto) Ur Squamous Epith Cells Urine Opiates Screen Urine Methadone Screen Ur Barbiturates Screen Ur Phencyclidine Scrn Ur Amphetamines Screen U Benzodiazepines Scrn U Oth Cocaine Metabols U Cannabinoids Screen Alcohol, Quantitative Assessment & Plan - Assessment and Plan (Free Text) Assessment: 28M with pressure injury to the BL posterior thighs and drop foot Plan: No signs of compartment syndrome at this time Will continue to monitor closely for any signs of deep tissue injury F/U neurosurgical recommendations PRN pain medication PT as tolerated Hot and cold compresses as needed No surgical intervention indicated at this time Discussed and examined with Dr. Miguel Coombs, PGY2
--- NOTE | 2018-07-18 16:42 | CP.PCM.CON ---
History of Present Illness - History of Present Illness History of Present Illness: 28 yo male with unremarkable PMH, presented to after consuming multiple beers, came home and fell asleep on a chair that was pressing on the posterior aspect of his legs due to his own weight. When woke up, states had inability to walk due to extreme weakness and unsteadiness. Denies associated chest pain, palpitations, dyspnea, syncope, nausea, vomiting, abdominal pain or diarrhea. Review of Systems - Review of Systems Review of Systems: All others are negative except HPI Past Patient History - Past Social History Smoking Status: Never Smoked - PSYCHIATRIC Hx Substance Use: No - SURGICAL HISTORY Hx Surgeries: No Meds Allergies/Adverse Reactions: Allergies Allergy/AdvReac Type Severity Reaction Status Date / Time No Known Allergies Allergy Unverified 07/17/18 22:37 - Medications Medications: Current Medications Sodium Chloride (Sodium Chloride 0.9%) 1,000 mls @ 200 mls/hr IV .Q5H CHRISTIAN Last Admin: 07/18/18 12:22 Dose: 200 mls/hr Lorazepam (Ativan) 1 mg IVP Q6H PRN PRN Reason: Symptoms of alcohol withdrawl Physical Exam - Constitutional Appears: Well, Non-toxic - Head Exam Head Exam: ATRAUMATIC, NORMOCEPHALIC - Eye Exam Eye Exam: EOMI Pupil Exam: PERRL - ENT Exam ENT Exam: Mucous Membranes Moist - Neck Exam Neck exam: Positive for: Full Rom. Negative for: Thyromegaly - Respiratory Exam Respiratory Exam: Clear to Auscultation Bilateral, NORMAL BREATHING PATTERN - GI/Abdominal Exam GI & Abdominal Exam: Soft. absent: Tenderness - Extremities Exam Extremities exam: Positive for: tenderness Additional comments: Posterior aspect of thighs is hard and swollen b/l - Neurological Exam Neurological exam: CN II-XII Intact, Oriented x3 - Psychiatric Exam Psychiatric exam: Anxious, Normal Affect, Normal Mood - Skin Skin Exam: Dry, Normal Color Results - Vital Signs Recent Vital Signs: Last Vital Signs Temp 98.6 F 07/18/18 15:25 Pulse 87 07/18/18 15:25 Resp 16 07/18/18 15:25 BP 114/74 07/18/18 15:25 Pulse Ox 94 L 07/18/18 15:25 - Labs Result Diagrams: 07/19/18 08:25 07/19/18 08:25 Labs: Laboratory Results - last 24 hr 07/17/18 07/17/18 07/17/18 23:00 23:00 23:00 WBC 8.9 RBC 4.39 L Hgb 14.5 Hct 41.4 MCV 94.2 H MCH 32.9 H MCHC 34.9 RDW 13.0 Plt Count 177 MPV 8.0 Neut % (Auto) 80.8 H Lymph % (Auto) 9.[address] [place] % (Auto) 9.2 Eos % (Auto) 0.0 Baso % (Auto) 0.6 Neut # (Auto) 7.1 H Lymph # (Auto) 0.[address] [place] # (Auto) 0.8 Eos # (Auto) 0.0 Baso # (Auto) 0.1 Neutrophils % (Manual) 77 H Band Neutrophils % 1 Lymphocytes % (Manual) 4 L Reactive Lymphs % 8 H Monocytes % (Manual) 10 Platelet Estimate Normal RBC Morphology Normal APTT D-Dimer, Quantitative 4361 H Sodium 134 Potassium 4.0 Chloride 98 Carbon Dioxide 28 Anion Gap 12 BUN 17 Creatinine 0.6 L Est GFR ( Amer) > 60 Est GFR (Non-Af Amer) > 60 Random Glucose 162 H Calcium 8.7 Phosphorus Magnesium Total Bilirubin 1.0 AST 1653 H ALT 490 H Alkaline Phosphatase 121 Total Creatine Kinase CK-MB (Mass) Troponin I 0.2030 H* Total Protein 7.3 Albumin 4.3 Globulin 3.0 Albumin/Globulin Ratio 1.4 Urine Color Urine Clarity Urine pH Ur Specific [place] Urine Protein Urine Glucose (UA) Urine Ketones Urine Blood Urine Nitrate Urine Bilirubin Urine Urobilinogen Ur Leukocyte Esterase Urine WBC (Auto) Urine RBC (Auto) Ur Squamous Epith Cells Urine Opiates Screen Urine Methadone Screen Ur Barbiturates Screen Ur Phencyclidine Scrn Ur Amphetamines Screen U Benzodiazepines Scrn U Oth Cocaine Metabols U Cannabinoids Screen Alcohol, Quantitative 07/18/18 07/18/18 07/18/18 01:05 03:55 03:55 WBC RBC Hgb Hct MCV MCH MCHC RDW Plt Count MPV Neut % (Auto) Lymph % (Auto) [place] % (Auto) Eos % (Auto) Baso % (Auto) Neut # (Auto) Lymph # (Auto) [place] # (Auto) Eos # (Auto) Baso # (Auto) Neutrophils % (Manual) Band Neutrophils % Lymphocytes % (Manual) Reactive Lymphs % Monocytes % (Manual) Platelet Estimate RBC Morphology APTT D-Dimer, Quantitative Sodium Potassium Chloride Carbon Dioxide Anion Gap BUN Creatinine Est GFR ( Amer) Est GFR (Non-Af Amer) Random Glucose Calcium Phosphorus Magnesium Total Bilirubin AST ALT Alkaline Phosphatase Total Creatine Kinase CK-MB (Mass) Troponin I Total Protein Albumin Globulin Albumin/Globulin Ratio Urine Color Yellow Urine Clarity Clear Urine pH 7.0 Ur Specific [place] 1.044 H Urine Protein Negative Urine Glucose (UA) 1+ H Urine Ketones Trace Urine Blood 2+ H Urine Nitrate Negative Urine Bilirubin Negative Urine Urobilinogen 2.0 Ur Leukocyte Esterase Neg Urine WBC (Auto) < 1 Urine RBC (Auto) 1 Ur Squamous Epith Cells < 1 Urine Opiates Screen Negative Urine Methadone Screen Negative Ur Barbiturates Screen Negative Ur Phencyclidine Scrn Negative Ur Amphetamines Screen Negative U Benzodiazepines Scrn Negative U Oth Cocaine Metabols Negative U Cannabinoids Screen Negative Alcohol, Quantitative < 10 07/18/18 07/18/18 07/18/18 04:22 06:01 06:01 WBC RBC Hgb Hct MCV MCH MCHC RDW Plt Count MPV Neut % (Auto) Lymph % (Auto) [place] % (Auto) Eos % (Auto) Baso % (Auto) Neut # (Auto) Lymph # (Auto) [place] # (Auto) Eos # (Auto) Baso # (Auto) Neutrophils % (Manual) Band Neutrophils % Lymphocytes % (Manual) Reactive Lymphs % Monocytes % (Manual) Platelet Estimate RBC Morphology APTT 24 D-Dimer, Quantitative Sodium Potassium Chloride Carbon Dioxide Anion Gap BUN Creatinine Est GFR ( Amer) Est GFR (Non-Af Amer) Random Glucose Calcium Phosphorus Magnesium Total Bilirubin AST ALT Alkaline Phosphatase Total Creatine Kinase 226855 H CK-MB (Mass) Troponin I 0.1220 H* Total Protein Albumin Globulin Albumin/Globulin Ratio Urine Color Urine Clarity Urine pH Ur Specific [place] Urine Protein Urine Glucose (UA) Urine Ketones Urine Blood Urine Nitrate Urine Bilirubin Urine Urobilinogen Ur Leukocyte Esterase Urine WBC (Auto) Urine RBC (Auto) Ur Squamous Epith Cells Urine Opiates Screen Urine Methadone Screen Ur Barbiturates Screen Ur Phencyclidine Scrn Ur Amphetamines Screen U Benzodiazepines Scrn U Oth Cocaine Metabols U Cannabinoids Screen Alcohol, Quantitative 11/24/18 11/24/18 11/24/18 06:02 11:42 11:42 WBC 6.6 RBC 4.02 L Hgb 13.3 Hct 38.2 MCV 95.0 H MCH 33.1 H MCHC 34.9 RDW 12.8 Plt Count 169 MPV 8.1 Neut % (Auto) 88.0 H Lymph % (Auto) 6.[address] % (Auto) 4.9 Eos % (Auto) 0.0 Baso % (Auto) 0.4 Neut # (Auto) 5.8 Lymph # (Auto) 0.[address] # (Auto) 0.3 Eos # (Auto) 0.0 Baso # (Auto) 0.0 Neutrophils % (Manual) 88 H Band Neutrophils % 1 Lymphocytes % (Manual) 7 L Reactive Lymphs % Monocytes % (Manual) 4 Platelet Estimate Normal RBC Morphology Normal APTT D-Dimer, Quantitative Sodium Potassium Chloride Carbon Dioxide Anion Gap BUN Creatinine Est GFR ( Amer) Est GFR (Non-Af Amer) Random Glucose Calcium Phosphorus 3.1 Magnesium 2.4 H Total Bilirubin AST ALT Alkaline Phosphatase Total Creatine Kinase 92020 H CK-MB (Mass) 57.3 H Troponin I 0.1100 Total Protein Albumin Globulin Albumin/Globulin Ratio Urine Color Urine Clarity Urine pH Ur Specific [place] Urine Protein Urine Glucose (UA) Urine Ketones Urine Blood Urine Nitrate Urine Bilirubin Urine Urobilinogen Ur Leukocyte Esterase Urine WBC (Auto) Urine RBC (Auto) Ur Squamous Epith Cells Urine Opiates Screen Urine Methadone Screen Ur Barbiturates Screen Ur Phencyclidine Scrn Ur Amphetamines Screen U Benzodiazepines Scrn U Oth Cocaine Metabols U Cannabinoids Screen Alcohol, Quantitative 07/18/18 11:42 WBC RBC Hgb Hct MCV MCH MCHC RDW Plt Count MPV Neut % (Auto) Lymph % (Auto) [place] % (Auto) Eos % (Auto) Baso % (Auto) Neut # (Auto) Lymph # (Auto) [place] # (Auto) Eos # (Auto) Baso # (Auto) Neutrophils % (Manual) Band Neutrophils % Lymphocytes % (Manual) Reactive Lymphs % Monocytes % (Manual) Platelet Estimate RBC Morphology APTT D-Dimer, Quantitative Sodium 137 Potassium 4.0 Chloride 100 Carbon Dioxide 28 Anion Gap 12 BUN 12 Creatinine 0.6 L Est GFR ( Amer) > 60 Est GFR (Non-Af Amer) > 60 Random Glucose 183 H Calcium 8.4 L Phosphorus 2.9 Magnesium 2.2 Total Bilirubin 1.0 AST 1109 H ALT 428 H Alkaline Phosphatase 91 Total Creatine Kinase CK-MB (Mass) Troponin I Total Protein 7.0 Albumin 3.9 Globulin 3.1 Albumin/Globulin Ratio 1.2 Urine Color Urine Clarity Urine pH Ur Specific [place] Urine Protein Urine Glucose (UA) Urine Ketones Urine Blood Urine Nitrate Urine Bilirubin Urine Urobilinogen Ur Leukocyte Esterase Urine WBC (Auto) Urine RBC (Auto) Ur Squamous Epith Cells Urine Opiates Screen Urine Methadone Screen Ur Barbiturates Screen Ur Phencyclidine Scrn Ur Amphetamines Screen U Benzodiazepines Scrn U Oth Cocaine Metabols U Cannabinoids Screen Alcohol, Quantitative - EKG Data EKG comments: my review: NSR, no acute ST-T changes Assessment & Plan (1) Rhabdomyolysis Assessment and Plan: Rhabdomyolysis in setting of prolonged pressure on lower extremities ECHO with preserved LV function Suggest aggressive hydration LE doppler to r/o DVT Status: Acute (2) Elevated troponin Assessment and Plan: Likley in setting of rhabdo No risks factors for CAD or in the right age group Echo in mu prelim review: Preserved LV function Status: Acute (3) Aortic valve vegetation Assessment and Plan: Echo in my preliminary review shows a possible vegetation at aortic valve/LVOT No clinical endocarditis Will speak with Dr. Harris for the official review Status: Acute
--- NOTE | 2018-07-18 17:41 | RAD ---
Date of service: 07/17/2018 PROCEDURE: CHEST RADIOGRAPH, 1 VIEW HISTORY: SOB COMPARISON: None available. FINDINGS: LUNGS: Clear. PLEURA: No pneumothorax or pleural fluid seen. CARDIOVASCULAR: No aortic atherosclerotic calcification present. Normal. OSSEOUS STRUCTURES: No significant abnormalities. VISUALIZED UPPER ABDOMEN: Normal. OTHER FINDINGS: None. IMPRESSION: No active disease.
--- NOTE | 2018-07-18 19:08 | CARD ---
APPROVED REPORT Date of service: 07/18/2018 EXAM: Two-dimensional and M-mode echocardiogram with Doppler and color Doppler. Other Information Quality : GoodRhythm : INDICATION ELEVATED TROMPONIN , ALCOHOL ABUSED 2D DIMENSIONS IVSd0.8 (0.7-1.1cm)LVDd4.5 (3.9-5.9cm) LVOT Diameter1.7 (1.8-2.4cm)PWd0.9 (0.7-1.1cm) LVDs3.0 (2.5-4.0cm)FS (%) 32.0 % LVEF (%)60.3 (>50%)LVEF (Biswas's)52.17 % M-Mode DIMENSIONS Left Atrium (MM)3.77 (2.5-4.0cm)Aortic Root2.47 (2.2-3.7cm) Aortic Cusp Exc.1.56 (1.5-2.0cm) Mitral Valve MV E Btatsbil34.6cm/sMV A Kkzazgqm71.9cm/sE/A ratio1.1 TDI Lateral E' Peak V10.93cm/sMedial E' Peak V7.32cm/sE/Lateral E'8.8 E/Medial E'13.2 Pulmonary Valve PV Peak Qvkinjdi19.4cm/sPV Peak Grad.4mmHg Tricuspid Valve TR Peak [id number]/sTR Peak Gr.[id number] LEFT VENTRICLE The left ventricle is normal size. There is normal left ventricular wall thickness. The left ventricular function is normal. The left ventricular ejection fraction is within the normal range. 52% No regional wall motion abnormalities noted. The left ventricular diastolic function is normal. No left ventricle thrombus noted on this study. There is no ventricular septal defect visualized. There is no left ventricular aneurysm. There is no mass noted in the left ventricle. RIGHT VENTRICLE The right ventricle is normal size. There is normal right ventricular wall thickness. The right ventricular systolic function is normal. ATRIA The left atrium size is normal. The right atrium size is normal. The interatrial septum is intact with no evidence for an atrial septal defect. AORTIC VALVE The aortic valve is normal in structure and function. No aortic regurgitation is present. There is no aortic valvular stenosis. There is no aortic valvular vegetation. MITRAL VALVE The mitral valve is normal in structure and function. There is no evidence of mitral valve prolapse. There is no mitral valve stenosis. There is no mitral valve regurgitation noted. TRICUSPID VALVE The tricuspid valve is normal in structure and function. There is no tricuspid valve regurgitation noted. There is no tricuspid valve prolapse or vegetation. There is no tricuspid valve stenosis. PULMONIC VALVE The pulmonary valve is normal in structure and function. There is no pulmonic valvular regurgitation. There is no pulmonic valvular stenosis. GREAT VESSELS The aortic root is normal in size. A mobile mass is attahced to the aortic root, and is protruding into the RVOT. Possibley a vvegetation, ZELDA advised. The ascending aorta is normal in size. The pulmonary artery is normal. The IVC is normal in size and collapses >50% with inspiration. PERICARDIAL EFFUSION The pericardium appears normal. There is no pleural effusion. <Conclusion> Normal left ventricular systolic function and doppler. The aortic root is normal in size. A mobile mass is attached to the aortic root, and is protruding into the RVOT. Possibly a vegetation, ZELDA advised.
[2018-07-18] MEDS ORDERED: Multivitamin (MVI) 10 ML, Thiamine 100 MG, Folic Acid 1 MG in Sodium Chloride 0.9% 1,00... IV SCH (23:00)
[2018-07-19 08:44] LABS: BASO % 0.3 % (0.0-2.0); EOS % 0.4 % (0.0-4.0); HEMOGLOBIN 12.9 g/dL (12.0-18.0); LYMPH # 1.4 K/uL (1.0-4.3); LYMPH % 26.2 % (20.0-40.0); MEAN CELL VOLUME 95.3 fL (80.0-94.0); MEAN CORPUSCULAR HEMOGLOBIN 33.2 pg (27.0-31.0); MEAN CORPUSCULAR HGB CONC 34.8 g/dL (33.0-37.0); MEAN PLATELET VOLUME 8.4 fL (7.2-11.7); MONO # 0.7 K/uL (0.0-0.8); MONO % 12.3 % (0.0-10.0); NEUT # 3.3 K/uL (1.8-7.0); NEUT % 60.8 % (50.0-75.0); RBC 3.9 Mil/uL (4.40-5.90); RED CELL DISTRIBUTION WIDTH 12.6 % (11.5-14.5); WHITE BLOOD COUNT 5.4 K/uL (4.8-10.8)
[2018-07-19 08:55] LABS: ALB/GLOB RATIO 1.4 (1.0-2.1); ALBUMIN 3.9 g/dL (3.5-5.0); ALT/SGPT 369 U/L (21-72); BLOOD UREA NITROGEN 15 mg/dL (9-20); CALCIUM 8.7 mg/dl (8.6-10.4); GFR NON-AFRICAN AMERICAN > 60
[2018-07-19 09:09] LABS: AST/SGOT 757 U/L (17-59)
[2018-07-19 09:53] LABS: FOLATE 13.5 ng/mL
--- NOTE | 2018-07-19 11:11 | CP.PCM.PN ---
Subjective - Date & Time of Evaluation Date of Evaluation: 07/19/18 Time of Evaluation: 11:08 - Subjective Subjective: Seen and examined COmplains of b/l LE wekaness No chest pain or dyspnea Objective - Vital Signs/Intake and Output Vital Signs (last 24 hours): Temp Pulse Resp BP Pulse Ox 98.0 F 80 20 126/79 96 07/19/18 08:36 07/19/18 08:36 07/19/18 08:36 07/19/18 08:36 07/19/18 08:36 - Medications Medications: Current Medications Sodium Chloride (Sodium Chloride 0.9%) 1,000 mls @ 200 mls/hr IV .Q5H [facility] Last Admin: 07/18/18 16:55 Dose: Not Given Ibuprofen (Motrin Tab) 600 mg PO Q6H PRN PRN Reason: Pain, moderate (4-7) Lorazepam (Ativan) 1 mg IVP Q6H PRN PRN Reason: Symptoms of alcohol withdrawl - Labs Labs: 07/19/18 08:25 07/19/18 08:25 APTT 24 SECONDS (21-34) 07/18/18 06:01 - Constitutional Appears: Well, Non-toxic - Eye Exam Pupil Exam: PERRL - Neck Exam Neck Exam: absent: Lymphadenopathy - Respiratory Exam Respiratory Exam: Clear to Ausculation Bilateral, NORMAL BREATHING PATTERN - Cardiovascular Exam Cardiovascular Exam: REGULAR RHYTHM, +S1, +S2. absent: JVD, Murmur - Neurological Exam Neurological Exam: CN II-XII Intact, Oriented x3 - Psychiatric Exam Psychiatric exam: Normal Affect, Normal Mood Assessment and Plan (1) Rhabdomyolysis Assessment & Plan: Aggressive hydration Follow up CPK Status: Acute (2) Elevated troponin Assessment & Plan: In setting of crush injury/rhabdo No ischemia work- up indicated Status: Acute (3) Aortic valve vegetation Assessment & Plan: Echo with artic root/valve mobile structure Needs ZELDA to define Spoke at length with patient and his father, agree to procedure Status: Acute
--- NOTE | 2018-07-19 12:13 | CP.PCM.PN ---
<GeremiasSarwat - Last Filed: 07/19/18 21:06> Subjective - Date & Time of Evaluation Date of Evaluation: 07/19/18 Time of Evaluation: 12:00 - Subjective Subjective: PGY-1 Medicine progress note for Dr. Bradley Pt was seen and examied at bedside. Pt is resting comfortably. He is complaining of a slight cough. He continue to report inability to dorsiflex or plantar flex. He reports his posterior leg pain is improving. Pt denies fever, chills, chest pain, sob, abdominal pain, n/v/d, new weakness, dizziness, headache. Objective - Vital Signs/Intake and Output Vital Signs (last 24 hours): Temp Pulse Resp BP Pulse Ox 98.0 F 80 20 126/79 96 07/19/18 08:36 07/19/18 08:36 07/19/18 08:36 07/19/18 08:36 07/19/18 08:36 - Medications Medications: Current Medications Sodium Chloride (Sodium Chloride 0.9%) 1,000 mls @ 200 mls/hr IV .Q5H [facility] Last Admin: 07/18/18 16:55 Dose: Not Given Ibuprofen (Motrin Tab) 600 mg PO Q6H PRN PRN Reason: Pain, moderate (4-7) Lorazepam (Ativan) 1 mg IVP Q6H PRN PRN Reason: Symptoms of alcohol withdrawl - Labs Labs: 07/19/18 08:25 07/19/18 08:25 APTT 24 SECONDS (21-34) 07/18/18 06:01 - Additional Findings Additional findings: - Constitutional Appears: Non-toxic, No Acute Distress - Head Exam Head Exam: NORMAL INSPECTION - Eye Exam Eye Exam: EOMI, PERRL - ENT Exam ENT Exam: Mucous Membranes Moist - Respiratory Exam Respiratory Exam: Clear to Ausculation Bilateral, NORMAL BREATHING PATTERN. a bsent: Rales, Rhonchi, Wheezes - Cardiovascular Exam Cardiovascular Exam: REGULAR RHYTHM, +S1, +S2 - GI/Abdominal Exam GI & Abdominal Exam: Distended, Soft, Normal Bowel Sounds. absent: Firm, Guarding, Rigid, Tenderness, Rebound - Extremities Exam Additional comments: improving dependent edema behind the thighs bilaterally, right greater than left no bruising noted no tenderness elicted over the hips - Back Exam Back Exam: NORMAL INSPECTION. absent: CVA tenderness (L), CVA tenderness (R), paraspinal tenderness, vertebral tenderness - Neurological Exam Neurological Exam: Abnormal Gait, Alert, Awake, Motor Sensory Deficit (l4-S1), Oriented x3 Neuro motor strength exam: Left Upper Extremity: 5, Right Upper Extremity: 5 Additional comments: sensation intact medial thigh, lateral thigh over the dorsum of feet sensation less L4-S1, unable to lift any toes nor big toe hyperreactive over the patella (left) DTR, normal DTR over the right patella pulses appreciated over the DP, PD Strength upper strength 5/5 - Skin Skin Exam: Dry, Intact, Normal Color, Warm Assessment and Plan - Assessment and Plan (Free Text) Assessment: This is a 28 year old male with no significant PMH who presented to the ED with difficulty walking x1 secondary to bilateral foot drop after falling onto the floor due to etoh intoxication and remaining there for over 10 hours. Pt noted to have rhabdomyolysis in the ED, elevation of troponin. Plan: S/p fall Head CT shows no acute intracranial pathology CT lower extremity with contrast (07/18/18): low attenution within hamstring muscles bilaterally mostl likely reflecting muscle strain without evidence of ricki acute hemorrhage. no evidence of fracture. Case discussed with neurosurgery (Dr. rapp) given lower extremity weakness and sensation diminished over the feet at time of my assessment. Patient underwent MRI of lumbar spine stat. Lumbar spine MRI: mild degenerative spondylosis most notably affecting the L4-L5 level where there is small to medium sized Schmorl node at associated with enhancing type 1 disocgenic sclerosis. Broad based disc ridge complex at this level does mildy vincenzo the ventral surface of the thecal sac and posteriorly displaces the intrathecal L5 possible the intrathecal L4 nerve roots. mild central canal narrowing at this level. No evidence of discitis osteomyelitis. No evidence of abnormal enhancement within the intrathecal extramedullary or intramedullary, Markedly distended urinary bladder. rule out urinary retention Case discussed with neurosurgery, given MRI findings, the findings are chronic. likely related to muscle strain to account for patient's decrease sensation over the feet and weakness at the feet. Surgery consulted for possible compartment syndrome. Patient does have pulses on bilateral DP and PD on my exam. CT scan notes no ricki hemorrhage. Will continue to monitor closely for any signs of deep tissue injury F/U neurosurgical recommendations PRN pain medication PT as tolerated Hot and cold compresses as needed No surgical intervention indicated at this time Continue [id number] Bilateral leg weakness Case discussed with neurosurgery (Dr. rapp) given lower extremity weakness and sensation diminished over the feet at time of my assessment. Patient underwent MRI of lumbar spine stat. Lumbar spine MRI: mild degenerative spondylosis most notably affecting the L4-L5 level where there is small to medium sized Schmorl node at associated with enhancing type 1 disocgenic sclerosis. Broad based disc ridge complex at this level does mildy vincenzo the ventral surface of the thecal sca and posteriorly displaces the intrathecal L5 possible the intrathecal L4 nerve roots. mild central canal narrowing at this level. No evidence of discitis osteomyelitis. No evidence of abnormal enhancement within the intrathecal extramedullary or intramedullary, Markedly distended urinary bladder. rule out urinary retention Case discussed with neurosurgery, given MRI findings, the findings are chronic. Likely related to muscle strain to account for patient's decrease sensation over the feet and weakness at the fee.t Mobile mass on aortic valve/root Echocardiogram shows LVEF shows normal EF, but mobile mass on aortic valve extending into the RVOT. ZELDA recommended Cardiology already on consult and are aware Woud like Shad for CTS if needed F/u ZELDA by Dr. Harris NSTEMI Troponin is downtrending and now normalized Cardiology evaluated the pt and reports initial elevated likely secondary to cr ush injury/rhabdomyolysis Heparin gtt discontinued Rhabdomyolysis, improving BUN/Cr is normal Continue IV fluids Trending down: [id number]-->[id number]->[id number] Elevated d-dimer CT chest w/ IV contrast: no demonstrated P.E or arterial dissection ZHOU has normalized s/p fall 2 days ago Transaminitis acute phase reactant patient is also alcohol user downtrending Abdominal US shows fatty infiltration of the liver f/u Hepatitis panel Cough f/u CXR Will give mucinex PPX: PT/OT eval Fall risk precautions Case discussed with Dr. Kirk Archuleta PGY-1 <Laura Bradley V - Last Filed: 07/20/18 16:19> Objective - Vital Signs/Intake and Output Vital Signs (last 24 hours): Temp Pulse Resp BP Pulse Ox 98.1 F 82 20 125/81 95 07/20/18 07:11 07/20/18 13:28 07/20/18 07:11 07/20/18 07:11 07/20/18 07:11 Intake and Output: 07/20/18 07/20/18 06:59 18:59 Intake Total 800 Balance 800 - Medications Medications: Current Medications Guaifenesin (Mucinex La) 600 mg PO BID [facility] Last Admin: 07/20/18 12:26 Dose: 600 mg Sodium Chloride (Sodium Chloride 0.9%) 1,000 mls @ 200 mls/hr IV .Q5H [facility] Last Admin: 07/20/18 12:27 Dose: Not Given Ibuprofen (Motrin Tab) 600 mg PO Q6H PRN PRN Reason: Pain, moderate (4-7) Lorazepam (Ativan) 1 mg IVP Q6H PRN PRN Reason: Symptoms of alcohol withdrawl - Labs Labs: 07/20/18 07:58 07/20/18 07:58 APTT 24 SECONDS (21-34) 07/18/18 06:01 Assessment and Plan (1) Status post fall Status: Acute (2) Leg weakness, bilateral Status: Acute (3) NSTEMI (non-ST elevated myocardial infarction) Status: Acute (4) Rhabdomyolysis Status: Acute (5) Elevated d-dimer Status: Acute (6) Transaminitis Status: Acute (7) Prophylactic measure Status: Acute Attending/Attestation - Attestation I have personally seen and examined this patient.: Yes I have fully participated in the care of the patient.: Yes I have reviewed all pertinent clinical information, including history, physical exam and plan: Yes Notes (Text): This is late computer entry for 07/19/18. Patient seen, examined and case discussed with day-time resident. Patient seen on the tower accompanied with brother and cousin. Patient gives permission to discuss his medical information in front of his family. Patient reports he is feeling better. He understands he is at the hospital. We had a ricki conversation about the root of his problems is his alcoholism and that we need to make a plan in regards to getting the patient at a point where he can stop. I have explained to patient and family that he was dehydrated and muscle break down which is slowly getting better, but he will need IV fluids to continue his improvement that he alone cannot drink enough to help this condition. Lastly I did explain to him that he does have mass inside the heart that was seen in the echocardiogram, and that he will be going for a special echo tomorrow to see what that mass is and whether he would need another special surgeon to see him. I also indicated to patient and family, that he was very joana that the spinal column was not involved and that we are hoping that the sensation and strength in the feet recover. General surgery has been following but not compartment syndrome. Assessment/Plan (1) Status post fall Muscle Strain Disc Herniation L4->l5 Assessment & Plan: * Neurosurgery on consult-->help appreciated * findings likely chronic on MRI, no intervention * General surgery on consult-->help appreciated * no surgery intervention * Head CT (: normal CT of the head. no acute intracranial hemorrhage. * CT Lower extremity (07/18/18): low-attenuation within the hamstring muscles bilaterally most likely reflecting muscle strain without evidence of frnk acute hemorrhage. no evidence of fracture. ill definfed low attenutation seen within the semi membranosis/smeitedinosis muscles bilaterally right greater than left, muscle strain. no evidence of vascular injury. * 07/18/18: Case discussed with neurosurgery (Dr. rapp) given lower extremity weakness and sensation diminished over the feet at time of my assessment. Danny marin underwent MRI of lumbar spine stat. Lumbar spine MRI: mild degenerative spondylosis most notably affecting the L4-L5 level where there is small to medium sized Schmori node at associated with enhancing type 1 disocgenic sclerosis. Broad based disc ridge complex at this level does mildy vincenzo the ventral surface of the thecal sac and posteriorly displaces the intrathecal L5 possible the intrathecal L4 nerve roots. mild central canal narrowing at this level. No evidence of discitis osteomyelitis. No evidence of abnormal enhancement within the intrathecal extramedullary or intramedullary, Markedly distended urinary bladder. rule out urinary retention * Case discussed with neurosurgery, given MRI findings, the findings are chronic. likely related to muscle strain to account for patient's decrease sensation over the feet and weakness at the feet. * [id number] * Fall precautions * PT/OT eval Status: Acute (2) Leg weakness, bilateral Assessment & Plan: * 07/18 Case discussed with neurosurgery (Dr. rapp) given lower extremity weakness and sensation diminished over the feet at time of my assessment. Patient underwent MRI of lumbar spine stat. Lumbar spine MRI: mild degenerative spondylosis most notably affecting the L4-L5 level where there is small to medium sized Schmori node at associated with enhancing type 1 disocgenic sclerosis. Broad based disc ridge complex at this level does mildy vincenzo the ventral surface of the thecal sca and posteriorly displaces the intrathecal L5 possible the intrathecal L4 nerve roots. mild central canal narrowing at this level. No evidence of discitis osteomyelitis. No evidence of abnormal enhancement within the intrathecal extramedullary or intramedullary, Markedly distended urinary bladder. rule out urinary retention Case discussed with neurosurgery, given MRI findings, the findings are chronic. likely related to muscle strain to account for patient's decrease sensation over the feet and weakness at the feet. * PT/OT eval Status: Acute (3) Elevated Troponin Assessment & Plan: * Cardiology (Dr. Peralta ) rn transitional-->help appreciated * Has normalized * Echocardiogram revealing aortic mass * Recommended ZELDA; discussed cardiology Status: Acute (4) Rhabdomyolysis Assessment & Plan: * Continue IV fluids * continue to trend CPK and monitor BUN and CR Status: Acute (5) Elevated d-dimer Assessment & Plan: * CT chest w/ IV contrast: no demonstrated P.E or arterial dissection * ZHOU has normalized * Venous dopplers obtained to rule out PE Status: Acute (6) Transaminitis Assessment & Plan: * acute phase reactant * patient is also alcohol user * will check hepatitis panel * check abdominal US in light of alcohol use Status: Acute (7) Prophylactic measure Assessment & Plan: * Fall risk precautions * Neurochecks Q4h * PT/OT * Rule out dvt Status: Acute
--- NOTE | 2018-07-19 12:35 | US ---
Date of service: 07/19/2018 HISTORY: transaminitis, alcohol use COMPARISON: None. TECHNIQUE: Sonographic evaluation of the abdomen. FINDINGS: LIVER: Measures 13.5 cm. Normal echogenicity of the liver parenchyma. Vaguely increased consistent with fatty infiltration. Smooth contour. No mass. No biliary dilatation. GALLBLADDER: Unremarkable. No gallstones. COMMON BILE DUCT: Measures 5 mm. No evidence of choledocholithiasis. PANCREAS: Limited visualization due to bowel gas. RIGHT KIDNEY: Measures 9.9cm. Normal echogenicity. No calculus, mass, or hydronephrosis. LEFT KIDNEY: Measures 10.3cm. Normal echogenicity. No calculus, mass, or hydronephrosis. SPLEEN: Normal in size and contour. No mass. AORTA: No aneurysmal dilatation. IVC: Unremarkable. OTHER FINDINGS: None. IMPRESSION: Fatty infiltration of the liver. Otherwise unremarkable examination.
--- NOTE | 2018-07-19 13:17 | CP.PCM.PN ---
Subjective - Date & Time of Evaluation Date of Evaluation: 07/19/18 Time of Evaluation: 13:14 - Subjective Subjective: General Surgery Progress Note for Dr. Rivera This 28M was seen and examined this AM at bedside. No acute events overnight, patient continues to deny pain however at this moment he denies any motor function from the knee down. Objective - Vital Signs/Intake and Output Vital Signs (last 24 hours): Temp Pulse Resp BP Pulse Ox 98.0 F 80 20 126/79 96 07/19/18 08:36 07/19/18 08:36 07/19/18 08:36 07/19/18 08:36 07/19/18 08:36 - Medications Medications: Current Medications Guaifenesin (Mucinex La) 600 mg PO BID [facility] Sodium Chloride (Sodium Chloride 0.9%) 1,000 mls @ 200 mls/hr IV .Q5H [facility] Last Admin: 07/18/18 16:55 Dose: Not Given Ibuprofen (Motrin Tab) 600 mg PO Q6H PRN PRN Reason: Pain, moderate (4-7) Lorazepam (Ativan) 1 mg IVP Q6H PRN PRN Reason: Symptoms of alcohol withdrawl - Labs Labs: 07/19/18 08:25 07/19/18 08:25 APTT 24 SECONDS (21-34) 07/18/18 06:01 - Constitutional Appears: Well, Non-toxic, No Acute Distress - Head Exam Head Exam: ATRAUMATIC, NORMOCEPHALIC - Eye Exam Eye Exam: Normal appearance. absent: Conjunctival injection, Scleral icterus - ENT Exam ENT Exam: Mucous Membranes Moist, Normal Oropharynx - Respiratory Exam Respiratory Exam: NORMAL BREATHING PATTERN. absent: Accessory Muscle Use, Respiratory Distress - Cardiovascular Exam Cardiovascular Exam: RRR - GI/Abdominal Exam GI & Abdominal Exam: Soft. absent: Distended, Tenderness - Extremities Exam Extremities exam: Positive for: pedal pulses present (BL palpable DP and PT pulses). Negative for: calf tenderness, pedal edema Additional comments: posterior thigh mildly tense on left side. 0/4 muscle strength. - Neurological Exam Neurological exam: Alert, Oriented x3 - Psychiatric Exam Psychiatric exam: Flat Affect, Normal Mood - Skin Skin Exam: Dry, Intact, Warm Assessment and Plan - Assessment and Plan (Free Text) Assessment: 28M with pressure injury to the BL posterior thighs and drop foot Plan: No signs of compartment syndrome at this time Will continue to monitor closely for any signs of deep tissue injury F/U neurosurgical recommendations PRN pain medication PT as tolerated Hot and cold compresses as needed No surgical intervention indicated at this time D/W Dr. Miguel Parmar PGY3
[2018-07-19] MEDS: guaiFENesin 600 mg ER Tab PO SCH (18:16)
[2018-07-19] MEDS: Sodium Chloride 0.9% 1,000 ML IV SCH (18:43)
[2018-07-20] MEDS: Sodium Chloride 0.9% 1,000 ML IV SCH ×2 (05:17→12:27)
[2018-07-20 08:02] LABS: HEPATITIS B SURFACE AG Negative (NEGATIVE)
--- NOTE | 2018-07-20 08:06 | CP.PCM.PN ---
Subjective - Date & Time of Evaluation Date of Evaluation: 07/20/18 Time of Evaluation: 08:06 - Subjective Subjective: PGY-1 Medicine progress note for Dr. Catrina Masters Pt was seen and examined at bedside. Pt is resting comfortably. He states that his cough is unchanged, productive of clear sputum. He continues to report inability to dorsiflex or plantar flex. He reports his posterior leg pain is improving. Pt denies fever, chills, chest pain, sob, abdominal pain, n/v/d, new weakness, dizziness, headache, urinary or bowel incontinence. Objective - Vital Signs/Intake and Output Vital Signs (last 24 hours): Temp Pulse Resp BP Pulse Ox 98.2 F 81 20 134/85 95 07/19/18 23:30 07/19/18 23:30 07/19/18 23:30 07/19/18 23:30 07/19/18 23:30 Intake and Output: 07/20/18 07/20/18 06:59 18:59 Intake Total 800 Balance 800 - Medications Medications: Current Medications Guaifenesin (Mucinex La) 600 mg PO BID [facility] Last Admin: 07/19/18 18:16 Dose: 600 mg Sodium Chloride (Sodium Chloride 0.9%) 1,000 mls @ 200 mls/hr IV .Q5H [facility] Last Admin: 07/20/18 05:17 Dose: 200 mls/hr Ibuprofen (Motrin Tab) 600 mg PO Q6H PRN PRN Reason: Pain, moderate (4-7) Lorazepam (Ativan) 1 mg IVP Q6H PRN PRN Reason: Symptoms of alcohol withdrawl - Labs Labs: 07/19/18 08:25 07/19/18 08:25 APTT 24 SECONDS (21-34) 07/18/18 06:01 - Additional Findings Additional findings: - Constitutional Appears: Non-toxic, No Acute Distress - Head Exam Head Exam: NORMAL INSPECTION - Eye Exam Eye Exam: EOMI, PERRL - ENT Exam ENT Exam: Mucous Membranes Moist - Respiratory Exam Respiratory Exam: Clear to Ausculation Bilateral, NORMAL BREATHING PATTERN. ab sent: Rales, Rhonchi, Wheezes - Cardiovascular Exam Cardiovascular Exam: REGULAR RHYTHM, +S1, +S2 - GI/Abdominal Exam GI & Abdominal Exam: Distended, Soft, Normal Bowel Sounds. absent: Firm, Guarding, Rigid, Tenderness, Rebound - Extremities Exam Additional comments: improving dependent edema behind the thighs bilaterally, right greater than left erythema is improved as well, mild induration remains posterior thigh right greater than left no bruising noted no tenderness elicited over the hips - Back Exam Back Exam: NORMAL INSPECTION. absent: CVA tenderness (L), CVA tenderness (R), paraspinal tenderness, vertebral tenderness - Neurological Exam Neurological Exam: Abnormal Gait, Alert, Awake, Motor Sensory Deficit (l4-S1), Oriented x3 Neuro motor strength exam: Left Upper Extremity: 5, Right Upper Extremity: 5 Additional comments: sensation intact medial thigh, lateral thigh over the dorsum of feet sensation is decreased L4-S1, unable to lift any toes nor big toe 3+ pulses bilateral DP, PT Strength upper strength 5/5 5/5 in hip flexion, knee extension bilaterally - Skin Skin Exam: Dry, Intact, Normal Color, Warm Assessment and Plan - Assessment and Plan (Free Text) Assessment: This is a 28 year old male with no significant PMH who presented to the ED with difficulty walking x1 secondary to bilateral foot drop after falling onto the floor due to etoh intoxication and remaining there for over 10 hours. Pt noted to have rhabdomyolysis in the ED, elevation of troponin. CPK has been improving daily with NS IVF. Plan: S/p fall Head CT shows no acute intracranial pathology CT lower extremity with contrast (07/18/18): low attenution within hamstring muscles bilaterally mostl likely reflecting muscle strain without evidence of ricki acute hemorrhage. no evidence of fracture. Case discussed with neurosurgery (Dr. rapp) given lower extremity weakness and sensation diminished over the feet at time of my assessment. Patient underwent MRI of lumbar spine stat. Lumbar spine MRI: mild degenerative spondylosis most notably affecting the L4-L5 level where there is small to medium sized Schmorl node at associated with enhancing type 1 disocgenic sclerosis. Broad based disc ridge complex at this level does mildy vincenzo the ventral surface of the thecal sac and posteriorly displaces the intrathecal L5 possible the intrathecal L4 nerve roots. mild central canal narrowing at this level. No evidence of discitis osteomyelitis. No evidence of abnormal enhancement within the intrathecal extramedullary or intramedullary, Markedly distended urinary bladder. rule out urinary retention Case discussed with neurosurgery, given MRI findings, the findings are chronic. likely related to muscle strain to account for patient's decrease sensation over the feet and weakness at the feet. Surgery consulted for possible compartment syndrome. Patient does have pulses on bilateral DP and PD on my exam. CT scan notes no ricki hemorrhage. Will continue to monitor closely for any signs of deep tissue injury F/U neurosurgical recommendations PRN pain medication PT as tolerated Hot and cold compresses as needed No surgical intervention indicated at this time Continue [id number] Bilateral leg weakness Case discussed with neurosurgery (Dr. rapp) given lower extremity weakness and sensation diminished over the feet at time of my assessment. Patient underwent MRI of lumbar spine stat. Lumbar spine MRI: mild degenerative spondylosis most notably affecting the L4-L5 level where there is small to medium sized Schmorl node at associated with enhancing type 1 disocgenic sclerosis. Broad based disc ridge complex at this level does mildy vincenzo the ventral surface of the thecal sca and posteriorly displaces the intrathecal L5 possible the intrathecal L4 nerve roots. mild central canal narrowing at this level. No evidence of discitis osteomyelitis. No evidence of abnormal enhancement within the intrathecal extramedullary or intramedullary, Markedly distended urinary bladder. rule out urinary retention Case discussed with neurosurgery, given MRI findings, the findings are chronic. Likely related to muscle strain to account for patient's decrease sensation over the feet and weakness at the fee.t Mobile mass on aortic valve/root Echocardiogram shows LVEF shows normal EF, but mobile mass on aortic valve extending into the RVOT. ZELDA recommended Cardiology already on consult and are aware Would like Shad for CTS if needed F/u ZELDA by Dr. Harris Scheduled for 07/21 at 3 pm NPO after midnight BCx2 is negative prelim x 24 hours NSTEMI Troponin is downtrending and now normalized Cardiology evaluated the pt and reports initial elevated likely secondary to crush injury/rhabdomyolysis Heparin gtt discontinued Rhabdomyolysis, improving BUN/Cr is normal Continue IV fluids at 200 mL/hr Trending down: [id number]-->[id number] F/u CPK in am Elevated d-dimer CT chest w/ IV contrast: no demonstrated P.E or arterial dissection ZHOU has normalized s/p fall Transaminitis acute phase reactant patient is also alcohol user downtrending Abdominal US shows fatty infiltration of the liver Hepatitis panel is negative F/u HIV, RPR Hx of alcoholism Abdominal US shows fatty infiltration of the liver CIWA EtOH <10 on admission Vitamin B12 and Folic acid are WNL Thiamine 100 mg PO daily Folic acid 1 tab PO daily Multivitamin 1 tab po daily Cough, clear sputum CXR shows poor inspiration with low lung volumes, mild crowded bronchovascular markings with minimal bibasilar atelectasis Pt afebrile, not tachycardic, no leukocytosis Continue mucinex No need for antibiotics at this time PPX VTE: Heparin 5000 units SC Q12h PT/OT eval Fall risk precautions Case discussed with Dr. Catrina Archuleta PGY-1
[2018-07-20 08:08] LABS: HEPATITIS A IGM NEGATIVE (NEGATIVE); HEPATITIS B CORE AB NEGATIVE (NEGATIVE)
[2018-07-20 08:19] LABS: HEPATITIS C ANTIBODY NEGATIVE (NEGATIVE)
[2018-07-20 08:23] LABS: ALB/GLOB RATIO 1.4 (1.0-2.1); ALT/SGPT 342 U/L (21-72); AST/SGOT 540 U/L (17-59); BLOOD UREA NITROGEN 13 mg/dL (9-20); CALCIUM 9.1 mg/dl (8.6-10.4); GFR NON-AFRICAN AMERICAN > 60
[2018-07-20 08:34] LABS: BASO % 0.6 % (0.0-2.0); EOS # 0.1 K/uL (0.0-0.7); EOS % 1.5 % (0.0-4.0); HEMOGLOBIN 13.7 g/dL (12.0-18.0); LYMPH # 1.3 K/uL (1.0-4.3); LYMPH % 21.6 % (20.0-40.0); MEAN CELL VOLUME 94.9 fL (80.0-94.0); MEAN CORPUSCULAR HEMOGLOBIN 33.1 pg (27.0-31.0); MEAN CORPUSCULAR HGB CONC 34.9 g/dL (33.0-37.0); MEAN PLATELET VOLUME 7.9 fL (7.2-11.7); MONO # 0.8 K/uL (0.0-0.8); MONO % 12.6 % (0.0-10.0); NEUT % 63.7 % (50.0-75.0); NRBC % 0.1 % (0.0-2.0); RBC 4.15 Mil/uL (4.40-5.90); RED CELL DISTRIBUTION WIDTH 12.3 % (11.5-14.5); WHITE BLOOD COUNT 6.2 K/uL (4.8-10.8)
--- NOTE | 2018-07-20 09:21 | CON ---
DATE: 07/18/2018 REASON FOR CONSULTATION: Difficulty moving lower extremities. HISTORY OF PRESENT ILLNESS: The patient is a 28-year-old young gentleman who was brought to the emergency room, had been found by his cousin with face down on the floor at home. The cousin states that the patient had been drinking a lot on , and when the cousin left, the patient reportedly was just sitting in a chair. However, when he returned many hours later, he was found face flat on the floor and could not really move his lower extremities. He was brought to emergency room at around midnight or so. The patient denies any past issues with difficulty moving his legs. No obvious loss of bowel or bladder control. A CAT scan was done, which is read as not showing acute fractures of his pelvis or lower extremity. The patient denies any past medical history. He denies taking any prescription medications. Denies any allergies. Denies any past surgical history. This was basically obtained somewhat through the patient as well as through his cousin who was helping to translate. 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 PHYSICAL EXAMINATION: On examination, the patient could actively lift each leg off the bed. He had good quad strength in terms of keeping his knees extended against resistance. He states his sensation was intact to light touch in both thighs as well as both medial sides of each ankle. However, he states he could not feel light touch in the first webspace of either foot nor in the lateral border of either foot. When asked to move the ankle either up or down and it is the same for his toes, no active muscle contraction is seen. He had excellent distal pulses. No clonus present. Babinski showed toes downgoing. IMAGING STUDIES: CAT scan was reviewed which showed some irregularity of the posterior-inferior margin of the body of L4. There appeared to be some disk bulge or something present at the L4-5 level as well, but it was unclear as it was not a dedicated CAT scan of the lumbar spine. I spoke to the radiologist who felt that there was sclerosis at the area of irregularity, indicative of some old process, and the official reading was that it was just a small disk bulge at that level as well. IMPRESSION: The patient presents with an L5 and S1 neuropathy. The radiologist did relate that on the CAT scan of lower extremities, there appeared to be some issues with both hamstrings. It is possible that whatever he did or whatever is going on in the hamstrings, has affected the lower part of the sciatic and affected the L5 and S1 roots. His CPK was markedly elevated, so he was being treated for rhabdomyolysis with hydration in the emergency room. A STAT MRI of the lumbar spine will be ordered to evaluate whether there is any significant pathology at the L4-5 level, but if not, presumably his hamstring injury what have you, depending how long he was lying on the floor, is probably the reason for this neurogenic dysfunction, and hopefully that will indicate this will return over time. ADDENDUM: The MRI was completed and reviewed. It confirms the radiologist's interpretation. The CAT scan that had only shown a small disk bulge at L4-5 and nothing that was significant enough that would knock out the L5 and S1 roots bilaterally from functioning. Therefore, presumably, this may have something to do with his hamstring issue affecting both lower roots, and hopefully if that resolves, he will get a return of function, but this remains to be determined. I did speak to Dr. Nick and communicated this as well. Kevin Deshpande MD
--- NOTE | 2018-07-20 10:06 | CP.PCM.PN ---
Subjective - Date & Time of Evaluation Date of Evaluation: 07/20/18 Time of Evaluation: 10:02 - Subjective Subjective: pt feels well. Objective - Vital Signs/Intake and Output Vital Signs (last 24 hours): Temp Pulse Resp BP Pulse Ox 98.1 F 74 20 125/81 95 07/20/18 07:11 07/20/18 07:11 07/20/18 07:11 07/20/18 07:11 07/20/18 07:11 Intake and Output: 07/20/18 07/20/18 06:59 18:59 Intake Total 800 Balance 800 - Medications Medications: Current Medications Guaifenesin (Mucinex La) 600 mg PO BID [facility] Last Admin: 07/19/18 18:16 Dose: 600 mg Sodium Chloride (Sodium Chloride 0.9%) 1,000 mls @ 200 mls/hr IV .Q5H [facility] Last Admin: 07/20/18 05:17 Dose: 200 mls/hr Ibuprofen (Motrin Tab) 600 mg PO Q6H PRN PRN Reason: Pain, moderate (4-7) Lorazepam (Ativan) 1 mg IVP Q6H PRN PRN Reason: Symptoms of alcohol withdrawl - Labs Labs: 07/20/18 07:58 07/20/18 07:58 APTT 24 SECONDS (21-34) 07/18/18 06:01 - Constitutional Appears: Well - Head Exam Head Exam: NORMAL INSPECTION - Eye Exam Eye Exam: EOMI - ENT Exam ENT Exam: Mucous Membranes Moist - Neck Exam Neck Exam: Full ROM - Respiratory Exam Respiratory Exam: Respiratory Distress - Cardiovascular Exam Cardiovascular Exam: Tachycardia, REGULAR RHYTHM - GI/Abdominal Exam GI & Abdominal Exam: Normal Bowel Sounds - Extremities Exam Extremities Exam: Full ROM - Neurological Exam Neurological Exam: Alert, Normal Gait - Psychiatric Exam Psychiatric exam: Normal Affect, Normal Mood - Skin Skin Exam: Normal Color Assessment and Plan - Assessment and Plan (Free Text) Assessment: 1. Unusual mobile density on tte attached to the aortic root, noted in the RVOT: a david is to performed tomorrow at 3 pm. Pt agrees, family at bedside
--- NOTE | 2018-07-20 10:20 | VASCLAB ---
Date of service: 07/20/2018 PROCEDURE: Lower Extremity Venous Duplex Exam. HISTORY: Swelling, Induration, Pain in limb, R/O DVT. PRIORS: None. TECHNIQUE: Bilateral common femoral, femoral, popliteal and posterior tibial, peroneal and great saphenous veins were evaluated. Flow was assessed with color Doppler, compressibility, assessment of phasic flow and augmentation response. Report prepared by FAHEEM Rey FINDINGS: RIGHT: 1. Common Femoral Vein: 1.1. Compressibility - Fully compressible: Thrombus - None : Flow - Phasic: Augmentation -Normal: Reflux - None. 2. Femoral Vein: 2.1. Compressibility - Fully compressible: Thrombus - None : Flow - Phasic: Augmentation -Normal: Reflux - None. 3. Popliteal Vein: 3.1. Compressibility - Fully compressible: Thrombus - None : Flow - Phasic: Augmentation -Normal: Reflux - None. 4. Posterior Tibial Vein: 4.1. Compressibility - Fully compressible: Thrombus - None: Flow - Phasic: Augmentation -Normal: Reflux - None. 5. Peroneal Vein: 5.1. Compressibility - Fully compressible: Thrombus - None: Flow - Phasic: Augmentation -Normal: Reflux - None. 6. Great Saphenous Vein: 6.1. Compressibility - Fully compressible: Thrombus - None: Flow - Phasic: Augmentation - Normal: Reflux - None. LEFT: 1. Common Femoral Vein: 1.1. Compressibility - Fully compressible: Thrombus - None: Flow - Phasic: Augmentation -Normal: Reflux - None. 2. Femoral Vein: 2.1. Compressibility - Fully compressible: Thrombus - None: Flow - Phasic: Augmentation -Normal: Reflux - None. 3. Popliteal Vein: 3.1. Compressibility - Fully compressible: Thrombus - None : Flow - Phasic: Augmentation -Normal: Reflux - None. 4. Posterior Tibial Vein: 4.1. Compressibility - Fully compressible: Thrombus - None: Flow - Phasic: Augmentation -Normal: Reflux - None. 5. Peroneal Vein: 5.1. Compressibility - Fully compressible: Thrombus - None: Flow - Phasic: Augmentation -Normal: Reflux - None. 6. Great Saphenous Vein: 6.1. Compressibility - Fully compressible: Thrombus - None: Flow - Phasic: Augmentation - Normal: Reflux - None. OTHER FINDINGS: Right: None significant. Left: None significant. IMPRESSION: Right: No evidence of deep or superficial vein thrombosis of the right lower extremity. Normal valve function noted of the right side. Left: No evidence of deep or superficial vein thrombosis of the left lower extremity. Normal valve function noted of the left side.
--- NOTE | 2018-07-20 10:53 | RAD ---
Date of service: 07/20/2018 HISTORY: Cough. COMPARISON: Comparison chest 07/17/2018. FINDINGS: LUNGS: Poor inspiration with low lung volumes, mild crowded bronchovascular markings with minimal bibasilar atelectasis. PLEURA: No significant pleural effusion identified, no pneumothorax apparent. CARDIOVASCULAR: No aortic atherosclerotic calcification present. Heart size appears upper limits of normal/borderline enlarged possibly due to AP positioning and low lung volumes no pulmonary vascular congestion. OSSEOUS STRUCTURES: No significant abnormalities. VISUALIZED UPPER ABDOMEN: Normal. OTHER FINDINGS: None. IMPRESSION: Poor inspiration with low lung volumes, mild crowded bronchovascular markings with minimal bibasilar atelectasis.
[2018-07-20] MEDS ORDERED: Potassium Chloride 20 mEq ER Tab PO ONE (11:35)
--- NOTE | 2018-07-20 12:12 | CP.PCM.PN ---
Subjective - Date & Time of Evaluation Date of Evaluation: 07/20/18 Time of Evaluation: 06:45 - Subjective Subjective: General Surgery Dr. Rivera Patient seen and examined this am at bedside. He states the pain is improving and he is able to move both legs without difficulty but is still unable to move his feet. He has no other complaints at this time Objective - Vital Signs/Intake and Output Vital Signs (last 24 hours): Temp Pulse Resp BP Pulse Ox 98.1 F 74 20 125/81 95 07/20/18 07:11 07/20/18 07:11 07/20/18 07:11 07/20/18 07:11 07/20/18 07:11 Intake and Output: 07/20/18 07/20/18 06:59 18:59 Intake Total 800 Balance 800 - Medications Medications: Current Medications Guaifenesin (Mucinex La) 600 mg PO BID [facility] Last Admin: 07/19/18 18:16 Dose: 600 mg Sodium Chloride (Sodium Chloride 0.9%) 1,000 mls @ 200 mls/hr IV .Q5H [facility] Last Admin: 07/20/18 05:17 Dose: 200 mls/hr Ibuprofen (Motrin Tab) 600 mg PO Q6H PRN PRN Reason: Pain, moderate (4-7) Lorazepam (Ativan) 1 mg IVP Q6H PRN PRN Reason: Symptoms of alcohol withdrawl - Labs Labs: 07/20/18 07:58 07/20/18 07:58 APTT 24 SECONDS (21-34) 07/18/18 06:01 - Constitutional Appears: Well, Non-toxic, No Acute Distress - Head Exam Head Exam: ATRAUMATIC, NORMOCEPHALIC - Eye Exam Eye Exam: EOMI - ENT Exam ENT Exam: Mucous Membranes Moist - Respiratory Exam Respiratory Exam: NORMAL BREATHING PATTERN - Cardiovascular Exam Cardiovascular Exam: REGULAR RHYTHM - GI/Abdominal Exam GI & Abdominal Exam: Soft. absent: Distended, Guarding, Tenderness - Extremities Exam Extremities Exam: absent: Calf Tenderness, Pedal Edema Additional comments: right thigh slightly less firm than previous exam, no increased pain with passive or active motion of legs bilaterally left thigh soft no pain with palpation - Neurological Exam Neurological Exam: Alert, Awake, Oriented x3 - Psychiatric Exam Psychiatric exam: Normal Affect, Normal Mood - Skin Skin Exam: Dry, Intact, Warm Additional comments: erythema in a pressure dependent pattern over posterior thighs bilaterally, consistent with patient story of prolonged sitting on edge of chair Assessment and Plan - Assessment and Plan (Free Text) Assessment: 28 yr old M with pressure injury to posterior bilateral thighs and drop foot bilaterally Plan: No signs of compartment syndrome at this time Will continue to monitor closely for any signs of deep tissue injury recommend Neurology consult PRN pain medication PT as tolerated Hot and cold compresses as needed No surgical intervention indicated at this time D/W Dr. Miguel Jenkins, PGY 1
--- NOTE | 2018-07-20 12:14 | CT ---
Date of service: 07/18/2018 PROCEDURE: CT Chest, Abdomen and Pelvis with intravenous contrast HISTORY: fall, sacral, b/l leg swell, weak below knees, +tr COMPARISON: None available. TECHNIQUE: IV dose administered: 100 mL Visipaque 320 Radiation dose: Total exam DLP = 339.34 mGy-cm. This CT exam was performed using one or more of the following dose reduction techniques: Automated exposure control, adjustment of the mA and/or kV according to patient size, and/or use of iterative reconstruction technique. FINDINGS: CT CHEST WITH CONTRAST: LUNGS: Ground-glass opacity in both lower lobes common nonspecific. Multifocal ground-glass opacities are seen in the right upper lobe and left upper lobe, right greater than left. There is focal ground-glass opacity in the medial right lower lobe. There is no ricki consolidation. There is no mass. Findings may reflect pulmonary contusion or bilateral pneumonia. MEDIASTINUM: Unremarkable. Normal caliber aorta and pulmonary arterial trunk. No aortic dissection. Normal size heart. LYMPH NODES: Unremarkable. PLEURA: Unremarkable. No pneumothorax. No pleural fluid. BONES: Unremarkable. OTHER FINDINGS: Minimal bilateral gynecomastia CT ABDOMEN AND PELVIS: LIVER: Unremarkable. No gross lesion or ductal dilatation. GALLBLADDER AND BILE DUCTS: Unremarkable. PANCREAS: Unremarkable. No gross lesion or ductal dilatation. SPLEEN: Unremarkable. ADRENALS: Unremarkable. No mass. KIDNEYS AND URETERS: Unremarkable. No hydronephrosis. No solid mass. VASCULATURE: No aortic atherosclerotic calcification or mural plaque present. Unremarkable. No aortic aneurysm. BOWEL: Unremarkable. No obstruction. No gross mural thickening. APPENDIX: Normal appendix. PERITONEUM: Unremarkable. No free fluid. No free air. LYMPH NODES: Unremarkable. No enlarged lymph nodes. BLADDER: Unremarkable. REPRODUCTIVE: Normal prostate BONES: No acute fracture. OTHER FINDINGS: None. IMPRESSION: Bilateral ground-glass pulmonary opacities as described, nonspecific. Contusion versus infectious origin. Possible infectious etiology. Correlate clinically. No other significant abnormality is identified. The preliminary findings for this examination were reported by [facility] at 1:49 a.m. on 07/18/2018. There is concurrence of this report with the preliminary findings.
[2018-07-20] MEDS: guaiFENesin 600 mg ER Tab PO SCH ×2 (12:26→17:09)
--- NOTE | 2018-07-20 19:40 | CARD ---
APPROVED REPORT Date of service: 07/17/2018 EKG Measurement Heart [id number] PA 132P58 [id number] <Conclusion> Normal sinus rhythm Minimal voltage criteria for LVH, may be normal variant Nonspecific ST abnormality Abnormal ECG
--- NOTE | 2018-07-20 21:20 | CARD ---
APPROVED REPORT Date of service: 07/18/2018 EKG Measurement Heart [id number] NM [id number] <Conclusion> Normal sinus rhythm Normal ECG
[2018-07-21] MEDS: Sodium Chloride 0.9% 1,000 ML IV SCH ×4 (01:30→10:26)
[2018-07-21 08:23] VITALS: BP 116/72; PULSE 82; RESP 18; TEMP 98.2; O2SAT 97
[2018-07-21 08:36] LABS: BASO % 0.5 % (0.0-2.0); EOS # 0.2 K/uL (0.0-0.7); EOS % 3.3 % (0.0-4.0); HEMOGLOBIN 13.7 g/dL (12.0-18.0); LYMPH # 1.3 K/uL (1.0-4.3); LYMPH % 19.4 % (20.0-40.0); MEAN CELL VOLUME 94.5 fL (80.0-94.0); MEAN CORPUSCULAR HEMOGLOBIN 33.2 pg (27.0-31.0); MEAN CORPUSCULAR HGB CONC 35.1 g/dL (33.0-37.0); MEAN PLATELET VOLUME 7.8 fL (7.2-11.7); MONO # 0.8 K/uL (0.0-0.8); NEUT # 4.4 K/uL (1.8-7.0); NEUT % 64.8 % (50.0-75.0); RBC 4.14 Mil/uL (4.40-5.90); RED CELL DISTRIBUTION WIDTH 12.7 % (11.5-14.5); WHITE BLOOD COUNT 6.8 K/uL (4.8-10.8)
[2018-07-21 08:58] LABS: ALB/GLOB RATIO 1.4 (1.0-2.1); ALT/SGPT 275 U/L (21-72); AST/SGOT 260 U/L (17-59); BLOOD UREA NITROGEN 15 mg/dL (9-20); CALCIUM 8.9 mg/dl (8.6-10.4); GFR NON-AFRICAN AMERICAN > 60
--- NOTE | 2018-07-21 09:01 | CP.PCM.PN ---
Subjective - Date & Time of Evaluation Date of Evaluation: 07/21/18 Time of Evaluation: 06:30 - Subjective Subjective: Surgery progress note for Dr. Rivera Pt seen and examined at bedside thsi AM. Objective - Vital Signs/Intake and Output Vital Signs (last 24 hours): Temp Pulse Resp BP Pulse Ox 98.2 F 82 18 116/72 97 07/21/18 07:25 07/21/18 07:25 07/21/18 07:25 07/21/18 07:25 07/21/18 07:25 Intake and Output: 07/21/18 07/21/18 06:59 18:59 Intake Total 1600 Balance 1600 - Medications Medications: Current Medications Folic Acid (Folic Acid) 1 mg PO DAILY [facility] Guaifenesin (Mucinex La) 600 mg PO BID [facility] Last Admin: 07/20/18 17:09 Dose: 600 mg Heparin Sodium (Porcine) (Heparin) 5,000 units SC Q12 [facility] Last Admin: 07/20/18 21:50 Dose: 5,000 units Sodium Chloride (Sodium Chloride 0.9%) 1,000 mls @ 200 mls/hr IV .Q5H [facility] Last Admin: 07/21/18 07:24 Dose: 200 mls/hr Ibuprofen (Motrin Tab) 600 mg PO Q6H PRN PRN Reason: Pain, moderate (4-7) Lorazepam (Ativan) 1 mg IVP Q6H PRN PRN Reason: Symptoms of alcohol withdrawl Multivitamins (Hexavitamin) 1 tab PO DAILY [facility] Thiamine HCl (Vitamin B1 Tab) 100 mg PO DAILY [facility] - Labs Labs: 07/21/18 08:20 07/21/18 08:20 APTT 28 SECONDS (21-34) 07/21/18 08:20
--- NOTE | 2018-07-21 09:13 | CP.PCM.PN ---
Subjective - Date & Time of Evaluation Date of Evaluation: 07/21/18 Time of Evaluation: 09:12 - Subjective Subjective: I reviewed the trans thoracic echo again and the mobile density as described is likely part of the tricuspid valve apparatus, and the ZELDA is canceled. No additional cardiology work up at this time. Objective - Vital Signs/Intake and Output Vital Signs (last 24 hours): Temp Pulse Resp BP Pulse Ox 98.2 F 82 18 116/72 97 07/21/18 07:25 07/21/18 07:25 07/21/18 07:25 07/21/18 07:25 07/21/18 07:25 Intake and Output: 07/21/18 07/21/18 06:59 18:59 Intake Total 1600 Balance 1600 - Medications Medications: Current Medications Folic Acid (Folic Acid) 1 mg PO DAILY [facility] Guaifenesin (Mucinex La) 600 mg PO BID [facility] Last Admin: 07/20/18 17:09 Dose: 600 mg Heparin Sodium (Porcine) (Heparin) 5,000 units SC Q12 [facility] Last Admin: 07/20/18 21:50 Dose: 5,000 units Sodium Chloride (Sodium Chloride 0.9%) 1,000 mls @ 200 mls/hr IV .Q5H [facility] Last Admin: 07/21/18 07:24 Dose: 200 mls/hr Ibuprofen (Motrin Tab) 600 mg PO Q6H PRN PRN Reason: Pain, moderate (4-7) Lorazepam (Ativan) 1 mg IVP Q6H PRN PRN Reason: Symptoms of alcohol withdrawl Multivitamins (Hexavitamin) 1 tab PO DAILY [facility] Thiamine HCl (Vitamin B1 Tab) 100 mg PO DAILY [facility] - Labs Labs: 07/21/18 08:20 07/21/18 08:20 APTT 28 SECONDS (21-34) 07/21/18 08:20
--- NOTE | 2018-07-21 09:19 | CP.PCM.PN ---
Objective - Vital Signs/Intake and Output Vital Signs (last 24 hours): Temp Pulse Resp BP Pulse Ox 98.2 F 82 18 116/72 97 07/21/18 07:25 07/21/18 07:25 07/21/18 07:25 07/21/18 07:25 07/21/18 07:25 Intake and Output: 07/21/18 07/21/18 06:59 18:59 Intake Total 1600 Balance 1600 - Medications Medications: Current Medications Folic Acid (Folic Acid) 1 mg PO DAILY [facility] Guaifenesin (Mucinex La) 600 mg PO BID [facility] Last Admin: 07/20/18 17:09 Dose: 600 mg Heparin Sodium (Porcine) (Heparin) 5,000 units SC Q12 [facility] Last Admin: 07/20/18 21:50 Dose: 5,000 units Sodium Chloride (Sodium Chloride 0.9%) 1,000 mls @ 200 mls/hr IV .Q5H [facility] Last Admin: 07/21/18 07:24 Dose: 200 mls/hr Ibuprofen (Motrin Tab) 600 mg PO Q6H PRN PRN Reason: Pain, moderate (4-7) Lorazepam (Ativan) 1 mg IVP Q6H PRN PRN Reason: Symptoms of alcohol withdrawl Multivitamins (Hexavitamin) 1 tab PO DAILY [facility] Thiamine HCl (Vitamin B1 Tab) 100 mg PO DAILY [facility] - Labs Labs: 07/21/18 08:20 07/21/18 08:20 APTT 28 SECONDS (21-34) 07/21/18 08:20
--- NOTE | 2018-07-21 09:30 | CP.PCM.CON ---
History of Present Illness - History of Present Illness History of Present Illness: PGY2 Neuro Consult Note for Dr. Ibrahim Reason for Consult: b/l foot drop Past Patient History - Past Medical History & Family History Past Medical History?: Yes Past Family History: Reviewed and not pertinent - Past Social History Smoking Status: Never Smoked - CARDIAC Hx Cardiac Disorders: No - PULMONARY Hx Respiratory Disorders: No - NEUROLOGICAL Hx Neurological Disorder: No - HEENT Hx HEENT Problems: No - RENAL Hx Chronic Kidney Disease: No - ENDOCRINE/METABOLIC Hx Endocrine Disorders: No - HEMATOLOGICAL/ONCOLOGICAL Hx Blood Disorders: No - INTEGUMENTARY Hx Dermatological Problems: No - MUSCULOSKELETAL/RHEUMATOLOGICAL Hx Musculoskeletal Disorders: No Hx Falls: Yes - GASTROINTESTINAL Hx Gastrointestinal Disorders: No - GENITOURINARY/GYNECOLOGICAL Hx Genitourinary Disorders: No - PSYCHIATRIC Hx Substance Use: No - SURGICAL HISTORY Hx Surgeries: No - ANESTHESIA Hx Anesthesia: No Meds Allergies/Adverse Reactions: Allergies Allergy/AdvReac Type Severity Reaction Status Date / Time No Known Allergies Allergy Unverified 07/17/18 22:37 - Medications Medications: Current Medications Folic Acid (Folic Acid) 1 mg PO DAILY [facility] Guaifenesin (Mucinex La) 600 mg PO BID [facility] Last Admin: 07/20/18 17:09 Dose: 600 mg Heparin Sodium (Porcine) (Heparin) 5,000 units SC Q12 [facility] Last Admin: 07/20/18 21:50 Dose: 5,000 units Sodium Chloride (Sodium Chloride 0.9%) 1,000 mls @ 200 mls/hr IV .Q5H [facility] Last Admin: 07/21/18 07:24 Dose: 200 mls/hr Ibuprofen (Motrin Tab) 600 mg PO Q6H PRN PRN Reason: Pain, moderate (4-7) Lorazepam (Ativan) 1 mg IVP Q6H PRN PRN Reason: Symptoms of alcohol withdrawl Multivitamins (Hexavitamin) 1 tab PO DAILY [facility] Thiamine HCl (Vitamin B1 Tab) 100 mg PO DAILY [facility] Results - Vital Signs Recent Vital Signs: Last Vital Signs Temp 98.2 F 07/21/18 07:25 Pulse 82 07/21/18 07:25 Resp 18 07/21/18 07:25 BP 116/72 07/21/18 07:25 Pulse Ox 97 07/21/18 07:25 - Labs Result Diagrams: 07/21/18 08:20 07/21/18 08:20 Labs: Laboratory Results - last 24 hr 07/20/18 07/20/18 07/20/18 10:58 16:03 16:36 WBC RBC Hgb Hct MCV MCH MCHC RDW Plt Count MPV Neut % (Auto) Lymph % (Auto) [place] % (Auto) Eos % (Auto) Baso % (Auto) Neut # (Auto) Lymph # (Auto) [place] # (Auto) Eos # (Auto) Baso # (Auto) APTT Sodium Potassium Chloride Carbon Dioxide Anion Gap BUN Creatinine Est GFR ( Amer) Est GFR (Non-Af Amer) POC Glucose (mg/dL) 101 122 H Random Glucose Calcium Phosphorus Magnesium Total Bilirubin AST ALT Alkaline Phosphatase Total Creatine Kinase 69260 H Total Protein Albumin Globulin Albumin/Globulin Ratio HIV 1&2 Antibody Screen 07/20/18 07/20/18 07/21/18 19:50 20:59 06:08 WBC RBC Hgb Hct MCV MCH MCHC RDW Plt Count MPV Neut % (Auto) Lymph % (Auto) [place] % (Auto) Eos % (Auto) Baso % (Auto) Neut # (Auto) Lymph # (Auto) [place] # (Auto) Eos # (Auto) Baso # (Auto) APTT Sodium Potassium Chloride Carbon Dioxide Anion Gap BUN Creatinine Est GFR ( Amer) Est GFR (Non-Af Amer) POC Glucose (mg/dL) 117 H 95 Random Glucose Calcium Phosphorus Magnesium Total Bilirubin AST ALT Alkaline Phosphatase Total Creatine Kinase Total Protein Albumin Globulin Albumin/Globulin Ratio HIV 1&2 Antibody Screen Negative 07/21/18 07/21/18 07/21/18 08:20 08:20 08:20 WBC 6.8 RBC 4.14 L Hgb 13.7 Hct 39.2 MCV 94.5 H MCH 33.2 H MCHC 35.1 RDW 12.7 Plt Count 250 MPV 7.8 Neut % (Auto) 64.8 Lymph % (Auto) 19.4 L [place] % (Auto) 12.0 H Eos % (Auto) 3.3 Baso % (Auto) 0.5 Neut # (Auto) 4.4 Lymph # (Auto) 1.3 [place] # (Auto) 0.8 Eos # (Auto) 0.2 Baso # (Auto) 0.0 APTT 28 Sodium 135 Potassium 3.7 Chloride 102 Carbon Dioxide 24 Anion Gap 12 BUN 15 Creatinine 0.6 L Est GFR ( Amer) > 60 Est GFR (Non-Af Amer) > 60 POC Glucose (mg/dL) Random Glucose 102 Calcium 8.9 Phosphorus 3.7 Magnesium 1.8 Total Bilirubin 1.1 AST 260 H D ALT 275 H Alkaline Phosphatase 104 Total Creatine Kinase 9225 H Total Protein 7.0 Albumin 4.0 Globulin 3.0 Albumin/Globulin Ratio 1.4 HIV 1&2 Antibody Screen
[2018-07-21] MEDS ORDERED: Multiple Vitamins Tab PO SCH (10:00)
[2018-07-21] MEDS: guaiFENesin 600 mg ER Tab PO SCH (10:23)
--- NOTE | 2018-07-21 10:46 | CP.PCM.CON ---
History of Present Illness - History of Present Illness History of Present Illness: Neurology Consult Note for Dr. Ibrahim Reason for consultation: B/L foot drop Patient is a 28 yo M with no significant PMH who was brought to the ED by his cousin after being found face down on the floor at home on about a week ago. Patient states that he had been seated for hours, heavily drinking beer that day, collapsed, and passed out. Patient was with his cousin while he was drinking, the cousin had left for several hours to find him face down on the floor. Patient was unable to move his lower extremities at that time. Patient states that he could not move his ankles and sensation was decreased bilaterally from the ankle down, R>L. Patient denied any difficulty moving at his hip or knee or decreased sensation above the ankle. Patient denies fevers, chills, chest pain, sob, n/v, constipation or diarrhea, and dysuria. PMH: Denies PSH: Denies All: NKDA SH: 8-10 beers daily but not everyday; denies tobacco and illicit drug use FH: Non-contributory Review of Systems - Review of Systems All systems: reviewed and no additional remarkable complaints except (12 point ROS reviewed and is negative other than what is stated in HPI.) Past Patient History - Past Medical History & Family History Past Medical History?: Yes Past Family History: Reviewed and not pertinent - Past Social History Smoking Status: Never Smoked - CARDIAC Hx Cardiac Disorders: No - PULMONARY Hx Respiratory Disorders: No - NEUROLOGICAL Hx Neurological Disorder: No - HEENT Hx HEENT Problems: No - RENAL Hx Chronic Kidney Disease: No - ENDOCRINE/METABOLIC Hx Endocrine Disorders: No - HEMATOLOGICAL/ONCOLOGICAL Hx Blood Disorders: No - INTEGUMENTARY Hx Dermatological Problems: No - MUSCULOSKELETAL/RHEUMATOLOGICAL Hx Musculoskeletal Disorders: No Hx Falls: Yes - GASTROINTESTINAL Hx Gastrointestinal Disorders: No - GENITOURINARY/GYNECOLOGICAL Hx Genitourinary Disorders: No - PSYCHIATRIC Hx Substance Use: No - SURGICAL HISTORY Hx Surgeries: No - ANESTHESIA Hx Anesthesia: No Meds Allergies/Adverse Reactions: Allergies Allergy/AdvReac Type Severity Reaction Status Date / Time No Known Allergies Allergy Unverified 07/17/18 22:37 - Medications Medications: Current Medications Folic Acid (Folic Acid) 1 mg PO DAILY [facility] Last Admin: 07/21/18 10:23 Dose: 1 mg Guaifenesin (Mucinex La) 600 mg PO BID [facility] Last Admin: 07/21/18 10:23 Dose: 600 mg Heparin Sodium (Porcine) (Heparin) 5,000 units SC Q12 [facility] Last Admin: 07/21/18 10:24 Dose: 5,000 units Sodium Chloride (Sodium Chloride 0.9%) 1,000 mls @ 200 mls/hr IV .Q5H [facility] Last Admin: 07/21/18 10:26 Dose: Not Given Ibuprofen (Motrin Tab) 600 mg PO Q6H PRN PRN Reason: Pain, moderate (4-7) Lorazepam (Ativan) 1 mg IVP Q6H PRN PRN Reason: Symptoms of alcohol withdrawl Multivitamins (Hexavitamin) 1 tab PO DAILY [facility] Last Admin: 07/21/18 10:24 Dose: 1 tab Thiamine HCl (Vitamin B1 Tab) 100 mg PO DAILY [facility] Last Admin: 07/21/18 10:23 Dose: 100 mg Physical Exam - Constitutional Appears: Non-toxic, No Acute Distress - Head Exam Head Exam: NORMAL INSPECTION - Eye Exam Eye Exam: Normal appearance, PERRL - ENT Exam ENT Exam: Mucous Membranes Moist, Normal Exam - Neck Exam Neck exam: Positive for: Normal Inspection - Respiratory Exam Respiratory Exam: Clear to Auscultation Bilateral. absent: Rales, Rhonchi, Wheezes - Cardiovascular Exam Cardiovascular Exam: REGULAR RHYTHM, RRR, +S1, +S2 - GI/Abdominal Exam GI & Abdominal Exam: Soft. absent: Distended, Guarding, Rebound, Tenderness - Extremities Exam Extremities exam: Positive for: normal capillary refill, normal inspection, pedal pulses present. Negative for: calf tenderness, joint swelling, pedal edema, tenderness - Neurological Exam Neurological exam: Abnormal Gait (foot drop gait), Alert, CN II-XII Intact, Oriented x3 Results - Vital Signs Recent Vital Signs: Last Vital Signs Temp 98.2 F 07/21/18 07:25 Pulse 82 07/21/18 07:25 Resp 18 07/21/18 07:25 BP 116/72 07/21/18 07:25 Pulse Ox 97 07/21/18 07:25 - Labs Result Diagrams: 07/21/18 08:20 07/21/18 08:20 Labs: Laboratory Results - last 24 hr 07/20/18 07/20/18 07/20/18 10:58 16:03 16:36 WBC RBC Hgb Hct MCV MCH MCHC RDW Plt Count MPV Neut % (Auto) Lymph % (Auto) [place] % (Auto) Eos % (Auto) Baso % (Auto) Neut # (Auto) Lymph # (Auto) [place] # (Auto) Eos # (Auto) Baso # (Auto) APTT Sodium Potassium Chloride Carbon Dioxide Anion Gap BUN Creatinine Est GFR ( Amer) Est GFR (Non-Af Amer) POC Glucose (mg/dL) 101 122 H Random Glucose Calcium Phosphorus Magnesium Total Bilirubin AST ALT Alkaline Phosphatase Total Creatine Kinase 13449 H Total Protein Albumin Globulin Albumin/Globulin Ratio HIV 1&2 Antibody Screen 07/20/18 07/20/18 07/21/18 19:50 20:59 06:08 WBC RBC Hgb Hct MCV MCH MCHC RDW Plt Count MPV Neut % (Auto) Lymph % (Auto) [place] % (Auto) Eos % (Auto) Baso % (Auto) Neut # (Auto) Lymph # (Auto) [place] # (Auto) Eos # (Auto) Baso # (Auto) APTT Sodium Potassium Chloride Carbon Dioxide Anion Gap BUN Creatinine Est GFR ( Amer) Est GFR (Non-Af Amer) POC Glucose (mg/dL) 117 H 95 Random Glucose Calcium Phosphorus Magnesium Total Bilirubin AST ALT Alkaline Phosphatase Total Creatine Kinase Total Protein Albumin Globulin Albumin/Globulin Ratio HIV 1&2 Antibody Screen Negative 07/21/18 07/21/18 07/21/18 08:20 08:20 08:20 WBC 6.8 RBC 4.14 L Hgb 13.7 Hct 39.2 MCV 94.5 H MCH 33.2 H MCHC 35.1 RDW 12.7 Plt Count 250 MPV 7.8 Neut % (Auto) 64.8 Lymph % (Auto) 19.4 L [place] % (Auto) 12.0 H Eos % (Auto) 3.3 Baso % (Auto) 0.5 Neut # (Auto) 4.4 Lymph # (Auto) 1.3 [place] # (Auto) 0.8 Eos # (Auto) 0.2 Baso # (Auto) 0.0 APTT 28 Sodium 135 Potassium 3.7 Chloride 102 Carbon Dioxide 24 Anion Gap 12 BUN 15 Creatinine 0.6 L Est GFR ( Amer) > 60 Est GFR (Non-Af Amer) > 60 POC Glucose (mg/dL) Random Glucose 102 Calcium 8.9 Phosphorus 3.7 Magnesium 1.8 Total Bilirubin 1.1 AST 260 H D ALT 275 H Alkaline Phosphatase 104 Total Creatine Kinase 9225 H Total Protein 7.0 Albumin 4.0 Globulin 3.0 Albumin/Globulin Ratio 1.4 HIV 1&2 Antibody Screen Assessment & Plan - Assessment and Plan (Free Text) Assessment: 28 yo M with no significant PMH presents with b/l LE weakness and numbness. Given history of patient being seated for hours, along with CT findings of b/l hamstring strain, and only chronic changes seen on lumbar MRI, common fibular nerve compression is likely. Recommend ankle foot orthosis and outpatient PT. OK for d/c from neurology standpoint.
--- NOTE | 2018-07-21 11:28 | CP.PCM.DIS ---
Provider - Provider Date of Admission: 07/18/18 04:44 Attending physician: Emanuel Masters MD Time Spent in preparation of Discharge (in minutes): 35 Hospital Course - Lab Results Lab Results: Micro Results 07/19/18 08:25 Blood-Venous Blood Culture - Preliminary NO GROWTH AFTER 48 HOURS 07/19/18 13:16 Blood-Venous Blood Culture - Preliminary NO GROWTH AFTER 24 HOURS Most Recent Lab Values WBC 6.8 K/uL (4.8-10.8) 07/21/18 08:20 RBC 4.14 Mil/uL (4.40-5.90) L 07/21/18 08:20 Hgb 13.7 g/dL (12.0-18.0) 07/21/18 08:20 Hct 39.2 % (35.0-51.0) 07/21/18 08:20 MCV 94.5 fL (80.0-94.0) H 07/21/18 08:20 MCH 33.2 pg (27.0-31.0) H 07/21/18 08:20 MCHC 35.1 g/dL (33.0-37.0) 07/21/18 08:20 RDW 12.7 % (11.5-14.5) 07/21/18 08:20 Plt Count 250 K/uL (130-400) 07/21/18 08:20 MPV 7.8 fL (7.2-11.7) 07/21/18 08:20 Neut % (Auto) 64.8 % (50.0-75.0) 07/21/18 08:20 Lymph % (Auto) 19.4 % (20.0-40.0) L 07/21/18 08:20 [place] % (Auto) 12.0 % (0.0-10.0) H 07/21/18 08:20 Eos % (Auto) 3.3 % (0.0-4.0) 07/21/18 08:20 Baso % (Auto) 0.5 % (0.0-2.0) 07/21/18 08:20 Neut # (Auto) 4.4 K/uL (1.8-7.0) 07/21/18 08:20 Lymph # (Auto) 1.3 K/uL (1.0-4.3) 07/21/18 08:20 [place] # (Auto) 0.8 K/uL (0.0-0.8) 07/21/18 08:20 Eos # (Auto) 0.2 K/uL (0.0-0.7) 07/21/18 08:20 Baso # (Auto) 0.0 K/uL (0.0-0.2) 07/21/18 08:20 Neutrophils % (Manual) 88 % (50-75) H 07/18/18 11:42 Band Neutrophils % 1 % (0-2) 07/18/18 11:42 Lymphocytes % (Manual) 7 % (20-40) L 07/18/18 11:42 Reactive Lymphs % 8 % (0-0) H 07/17/18 23:00 Monocytes % (Manual) 4 % (0-10) 07/18/18 11:42 Platelet Estimate Normal (NORMAL) 07/18/18 11:42 RBC Morphology Normal 07/18/18 11:42 APTT 28 SECONDS (21-34) 07/21/18 08:20 D-Dimer, Quantitative 4361 ng/mlDDU (0-243) H 07/17/18 23:00 Sodium 135 mmol/L (132-148) 07/21/18 08:20 Potassium 3.7 mmol/L (3.6-5.2) 07/21/18 08:20 Chloride 102 mmol/L (98-107) 07/21/18 08:20 Carbon Dioxide 24 mmol/L (22-30) 07/21/18 08:20 Anion Gap 12 (10-20) 07/21/18 08:20 BUN 15 mg/dL (9-20) 07/21/18 08:20 Creatinine 0.6 mg/dL (0.8-1.5) L 07/21/18 08:20 Est GFR ( Amer) > 60 07/21/18 08:20 Est GFR (Non-Af Amer) > 60 07/21/18 08:20 POC Glucose (mg/dL) 95 mg/dL (65-110) 07/21/18 06:08 Random Glucose 102 mg/dL (75-110) 07/21/18 08:20 Calcium 8.9 mg/dl (8.6-10.4) 07/21/18 08:20 Phosphorus 3.7 mg/dL (2.5-4.5) 07/21/18 08:20 Magnesium 1.8 mg/dL (1.6-2.3) 07/21/18 08:20 Total Bilirubin 1.1 mg/dL (0.2-1.3) 07/21/18 08:20 AST 260 U/L (17-59) H D 07/21/18 08:20 ALT 275 U/L (21-72) H 07/21/18 08:20 Alkaline Phosphatase 104 U/L (38-126) 07/21/18 08:20 Total Creatine Kinase 9225 U/L (55-170) H 07/21/18 08:20 CK-MB (Mass) 57.3 ng/mL (0.0-3.38) H 07/18/18 11:42 Troponin I 0.1100 ng/mL (0.00-0.120) 07/18/18 11:42 Total Protein 7.0 g/dL (6.3-8.3) 07/21/18 08:20 Albumin 4.0 g/dL (3.5-5.0) 07/21/18 08:20 Globulin 3.0 gm/dL (2.2-3.9) 07/21/18 08:20 Albumin/Globulin Ratio 1.4 (1.0-2.1) 07/21/18 08:20 Vitamin B12 662 pg/mL (239-931) 07/19/18 08:25 Folate 13.5 ng/mL 07/19/18 08:25 Urine Color Yellow (YELLOW) 07/18/18 03:55 Urine Clarity Clear (Clear) 07/18/18 03:55 Urine pH 7.0 (5.0-8.0) 07/18/18 03:55 Ur Specific [place] 1.044 (1.003-1.030) H 07/18/18 03:55 Urine Protein Negative mg/dL (NEGATIVE) 07/18/18 03:55 Urine Glucose (UA) 1+ mg/dL (Normal) H 07/18/18 03:55 Urine Ketones Trace mg/dL (NEGATIVE) 07/18/18 03:55 Urine Blood 2+ (NEGATIVE) H 07/18/18 03:55 Urine Nitrate Negative (NEGATIVE) 07/18/18 03:55 Urine Bilirubin Negative (NEGATIVE) 07/18/18 03:55 Urine Urobilinogen 2.0 mg/dL (0.2-1.0) 07/18/18 03:55 Ur Leukocyte Esterase Neg [place]/uL (Negative) 07/18/18 03:55 Urine WBC (Auto) < 1 /hpf (0-5) 07/18/18 03:55 Urine RBC (Auto) 1 /hpf (0-3) 07/18/18 03:55 Ur Squamous Epith Cells < 1 /hpf (0-5) 07/18/18 03:55 Urine Opiates Screen Negative (NEGATIVE) 07/18/18 03:55 Urine Methadone Screen Negative (NEGATIVE) 07/18/18 03:55 Ur Barbiturates Screen Negative (NEGATIVE) 07/18/18 03:55 Ur Phencyclidine Scrn Negative (NEGATIVE) 07/18/18 03:55 Ur Amphetamines Screen Negative (NEGATIVE) 07/18/18 03:55 U Benzodiazepines Scrn Negative (NEGATIVE) 07/18/18 03:55 U Oth Cocaine Metabols Negative (NEGATIVE) 07/18/18 03:55 U Cannabinoids Screen Negative (NEGATIVE) 07/18/18 03:55 Alcohol, Quantitative < 10 mg/dl (0-10) 07/18/18 01:05 Hepatitis A IgM Ab Negative (NEGATIVE) 07/19/18 08:25 Hep Bs Antigen Negative (NEGATIVE) 07/19/18 08:25 Hep B Core IgM Ab Negative (NEGATIVE) 07/19/18 08:25 Hepatitis C Antibody Negative (NEGATIVE) 07/19/18 08:25 HIV 1&2 Antibody Screen Negative (NEGATIVE) 07/20/18 19:50 - Hospital Course Hospital Course: On admission: Patient is a 28 yo male with no significant past medical history presents to emergency department for evaluation unable to walk without assistance. Patient states that on Friday he had 10 beers. After consuming the beers, patient states he collapsed on his leg and passed out. Patient does not recall if he hit his head but denies bladder or bowel incontinence. Patient states he chose to come in today instead of Friday because he thought the symptoms would resolve. Patient states he took Tylenol because he was having back pain as well but that resolved. The ability to walk unassisted did not so patient decided to come into the ED with his father today. Patient denies fevers, chills, chest pain, sob, n/v, constipation or diarrhea, and dysuria. Hospital course: Pt was admitted to the [facility]. In addition to the bilateral foot drop with decreased sensation, he was noted to be in rhabdomyolysis (BUN/Cr normal), with troponin elevation at 0.2030, ddimer was elevated at 4361 and his LFTs were elevated. EKG was NSR, no acute sttw changes. Pt was started on heparin gtt. Cardiology, Dr. Motley, was consulted for the NSTEMI who agreed with heparin gtt at the time. Upon re-evaluation and rapid normalization of troponin levels, heparin gtt was discontinued and original elevation was likely due to rhabdomyolysis. Chest/abd/pelv showed diffuse disc bulge at the L4-5 intervertebral disc space level with a Schmorl's node in the inferior L4 vertebral endplate. Sclerosi about the Schmorl's node indicating the chronic nature of this intravertebral disc herniation. Posterior osteophyte arising from the posterior inferior corner of the L4 vertebra. Mild right L4-5 neural foraminal stenosis. There is no central spinal stenosis or focal disc herniation appreciated. Chest CTA did not show PE. Lower extremity CT with contrast showed muscle strain without evidence of ricki acute hemorrhage. Neurosurgery, Dr. Deshpande, was consulted. Dr. Deshpande evaluated the pt and examined the lower extremity CT. He requested a stat lumbar MRI with and without contrast. MRI only showed a Schmorl node and mild compression of the ventral surface of the thecal sac. Case discussed with neurosurgery, given MRI findings, the findings are chronic. Likely related to muscle strain to account for patient's decrease sensation over the feet and weakness at the feet. Surgery consulted for possible compartment syndrome. Surgery recommended hot and cold compresses as needed. No surgical intervention indicated at this time. Neurology, Dr. Ibrahim, was consulted, who recommends outpatient follow up. Pt's redness and swelling to posterior thigh gradually improved over the course of admission. Pt's CPK markedly decreased daily, as well as LFTs. On discharge, he has 3/5 plantar flexion intact and he is able to walk using rolling walker. Pt was monitored for signs and symptoms of EtOH withdrawal, none of which were present during this admission. Imaging: Head CT shows no acute intracranial pathology CT lower extremity with contrast (07/18/18): low attenuation within hamstring muscles bilaterally most likely reflecting muscle strain without evidence of ricki acute hemorrhage. no evidence of fracture. Abd/pelvis CTA: diffuse disc bulge at the L4-5 intervertebral disc space level with a Schmorl's node in the inferior L4 vertebral endplate. There is sclerosis about the Schmorl's node indicating the chronic nature of this intravertebral disc herniation. There is posterior osteophyte arising from the posterior inferior corner of the L4 vertebra. There is mild right L4-5 neural foraminal stenosis. There is no central spinal stenosis or focal disc herniation appreciated. Lumbar spine MRI: mild degenerative spondylosis most notably affecting the L4-L5 level where there is small to medium sized Schmorl node at associated with enhancing type 1 disocgenic sclerosis. Broad based disc ridge complex at this level does mildly compresd the ventral surface of the thecal sac and posteriorly displaces the intrathecal L5 possible the intrathecal L4 nerve roots. mild central canal narrowing at this level. No evidence of discitis osteomyelitis. No evidence of abnormal enhancement within the intrathecal extramedullary or intramedullary, Markedly distended urinary bladder. CT chest w/ IV contrast: no demonstrated P.E or arterial dissection Abdominal US shows fatty infiltration of the liver. Bilateral lower extremity venous doppler: negative for DVT bilaterally. This is a summary of the hospital course, please see chart for full details. Discharge Exam - Additional Findings Additional findings: - Constitutional Appears: Non-toxic, No Acute Distress - Head Exam Head Exam: NORMAL INSPECTION - Eye Exam Eye Exam: EOMI, PERRL - ENT Exam ENT Exam: Mucous Membranes Moist - Respiratory Exam Respiratory Exam: Clear to Ausculation Bilateral, NORMAL BREATHING PATTERN. absent: Rales, Rhonchi, Wheezes - Cardiovascular Exam Cardiovascular Exam: REGULAR RHYTHM, +S1, +S2 - GI/Abdominal Exam GI & Abdominal Exam: Distended, Soft, Normal Bowel Sounds. absent: Firm, Guarding, Rigid, Tenderness, Rebound - Extremities Exam Additional comments: improved dependent edema behind the thighs bilaterally, right greater than left erythema is currently very mild, minimal induration remains posterior thigh right greater than left no bruising noted no tenderness elicited over the hips - Back Exam Back Exam: NORMAL INSPECTION. absent: CVA tenderness (L), CVA tenderness (R), paraspinal tenderness, vertebral tenderness - Neurological Exam Neurological Exam: Abnormal Gait, Alert, Awake, Motor Sensory Deficit (l4-S1), Oriented x3 Neuro motor strength exam: Left Upper Extremity: 5, Right Upper Extremity: 5 Additional comments: sensation intact medial thigh, lateral thigh over the dorsum of feet sensation is decreased L4-S1, 3/5 plantar flexion strength, 0/5 dorsi flexion strength 3+ pulses bilateral DP, PT Strength upper strength 5/5 5/5 in hip flexion, knee extension bilaterally - Skin Skin Exam: Dry, Intact, Normal Color, Warm Discharge Plan - Follow Up Plan Condition: GUARDED Disposition: HOME/ ROUTINE Instructions: Rhabdomyolysis (DC), Weakness (ED) Additional Instructions: Pt is medically stable for discharge home as per Dr. Masters. 1. Please use walker as instructed by physical therapy team. 2. Wear high top sneakers for support of you ankles. 3. Schedule appointment with [facility] located on Floor [address] of [facility] by calling [phone]. They will be your primary care physicians and help to further coordinate your care and arrange for Neurology follow up for your foot drop. Please follow up with pending labwork that was drawn prior to your discharge. 4. Pt is to follow up with [facility] on 07/30/18 at 10 am. 5. Patient is to follow up with [facility] on Tuesday 07/24 as instructed by JOSE A Hale. 6. You must drink at least 3 liters of water a day to help protect your kidneys from muscle breakdown. 7. Please take over the counter multivitamins daily. 8. Call [phone] for help arranging Alcohol Anonymous meeting. If symptoms worsen, please head to the nearest ED for further evaluation. Instructions explained to the pt, who understands and agrees with discharge plan. 1. Utilice por favor el Walker segn lo instruido por el equipo de la terapia fsica. 2. Use zapatillas de guru calidad superior para el apoyo de los tobillos. 3. Programe ady con el centro de kayce de [facility] ubicado en el piso [address] del [facility] al [phone]. Ellos sern ritchie mdicos de atencin primaria y ayudarn a coordinar an ms araujo cuidado y a organizar el seguimiento de la neurologa para araujo cada en el pie. 4. usted debe beber por lo menos 3 litros de agua al da para ayudar a proteger ritchie riones de la avera del msculo. 5. por favor, tome el contador multivitamnicos diariamente. 6. llame [phone] para la ayuda que arregla la reunin annima del alcohol.
[2018-07-21] MEDS ORDERED: Influenza Vaccine 60 MCG/0.5 ML SYR (3 yr & up) IM ONE (11:56)
--- NOTE | 2018-07-21 15:02 | CP.PCM.PN ---
Subjective - Date & Time of Evaluation Date of Evaluation: 07/21/18 Time of Evaluation: 07:10 - Subjective Subjective: General surgery progress note for Dr. Rivera Pt seen and examined this AM. patient denies any leg pain but complains of persistent weakness in bilateral feet. Objective - Vital Signs/Intake and Output Vital Signs (last 24 hours): Temp Pulse Resp BP Pulse Ox 98.2 F 82 18 116/72 97 07/21/18 07:25 07/21/18 07:25 07/21/18 07:25 07/21/18 07:25 07/21/18 07:25 Intake and Output: 07/21/18 07/21/18 06:59 18:59 Intake Total 1600 Balance 1600 - Labs Labs: 07/21/18 08:20 07/21/18 08:20 APTT 28 SECONDS (21-34) 07/21/18 08:20 - Constitutional Appears: Well, Non-toxic, No Acute Distress - Head Exam Head Exam: ATRAUMATIC, NORMOCEPHALIC - Eye Exam Eye Exam: Normal appearance. absent: Conjunctival injection, Scleral icterus - ENT Exam ENT Exam: Mucous Membranes Moist, Normal Oropharynx - Respiratory Exam Respiratory Exam: NORMAL BREATHING PATTERN. absent: Accessory Muscle Use, Respiratory Distress - GI/Abdominal Exam GI & Abdominal Exam: Soft. absent: Distended - Extremities Exam Extremities Exam: absent: Calf Tenderness Additional comments: posterior thigh BL with swelling, induration, and erythema improved since yesterday, compartment's soft - Neurological Exam Neurological Exam: Alert, Awake, Oriented x3 Neuro motor strength exam: Left Lower Extremity: 2/1 (foot dorsi and plantar flexion), Right Lower Extremity: 2/1 (foot dorsi and plantar flexion) - Psychiatric Exam Psychiatric exam: Normal Affect, Normal Mood Assessment and Plan - Assessment and Plan (Free Text) Assessment: 28M with posterior BL thigh pressure tissue injury Plan: No general surgery intervention indicated Follow up neurology recs PT PRN pain medication For any further questions or concerns, call general surgery team Discussed with Dr. Rivera, who agrees with above Mame Coombs, PGY2
== END 2018-07-21 14:05 | disposition home or self-care (01) | DRG 351 ==
LOC: C.ER 22:20 → C.9E 07-18 04:44 → C.5S 07-18 15:26
PROVIDERS: ADMIT Family Medicine; ATTEND Family Medicine
DX: M62.82 Rhabdomyolysis (principal); I21.4 Non-ST elevation (NSTEMI) myocardial infarction; I33.0 Acute and subacute infective endocarditis; F10.231 Alcohol dependence with withdrawal delirium; M21.372 Foot drop, left foot; M21.371 Foot drop, right foot; M48.00 Spinal stenosis, site unspecified; R79.1 Abnormal coagulation profile; M51.26 Other intervertebral disc displacement, lumbar region; E86.0 Dehydration